=== PATIENT | male | born 1960 | race Caucasian/White ===

== ENCOUNTER 2017-01-17 09:28 | Observation (INO) | payer MEDICARE, OTHER ==
[2017-01-17] VITALS (9 sets, daily range): BP systolic 102–161; BP diastolic 63–90
[~2017-01-17] VITALS: Ht 193 cm; Wt 108.5 kg
[~2017-01-17 09:28] MED LIST: ACET-704 PO; DIAZEPAM10 MG PO; ENOX40DI SQ; HYDR-2666 PO; PHYT1CAP2 PO; TRIA10.8 NS; WARF10TA PO
[2017-01-17 09:58] LABS: HEMATOCRIT 45.6 % (39.0-53.0); HEMOGLOBIN 15.5 g/dL (13.0-17.5); RED BLOOD COUNT 4.95 x10^6/uL (4.30-5.70); RED CELL DISTRIBUTION WIDTH 13.5 % (11.5-14.5); WHITE BLOOD COUNT 6.3 x10^3/uL (4.0-11.0)
[2017-01-17 10:09] LABS: INR 2.2 (0.8-1.1); PROTHROMBIN TIME PATIENT 23.2 SEC (11.7-14.0)
[2017-01-17] MEDS ORDERED: OMEG1CAP6 PO (10:10)
[2017-01-17] MEDS ORDERED: CETI10TA16 PO (10:10)
[2017-01-17] MEDS ORDERED: POLY10DR3 EACHEYE (10:10)
[2017-01-17] MEDS ORDERED: DULO20CA PO (10:10)
[2017-01-17] MEDS ORDERED: CARB15DR3 OP (10:10)
[2017-01-17] MEDS ORDERED: ERYT1OIN6 EACHEYE (10:10)
[2017-01-17 10:18] LABS: CALCIUM 8.7 mg/dL (8.5-10.1); GFR 77.3; POTASSIUM 4.2 mmol/L (3.5-5.1)
[2017-01-17] MEDS ORDERED: LIDOCAINE 2% 20 ML VIAL. ONE (11:29)
[2017-01-17] MEDS ORDERED: IOHEXOL 300 MG/ML 100ML VIAL. ONE (11:29)
[2017-01-17] MEDS ORDERED: VERAPAMIL 5 MG/2 ML VIAL. ONE (11:54)
[2017-01-17] MEDS ORDERED: NITROGLYCERIN 200 MCG/2 ML SYRINGE FOR CATH/VASC LAB. ONE ×2 (11:54→12:28)
[2017-01-17] MEDS ORDERED: MIDAZOLAM HCL/PF 5 MG/5 ML VIAL. ONE (11:55)
[2017-01-17] MEDS ORDERED: FENTANYL PF 250 MCG/5 ML VIAL. ONE (11:55)
[2017-01-17] MEDS ORDERED: HEPARIN for IV BOLUS 10,000 UNIT/10 ML VIAL. ONE (11:55)
[2017-01-17] MEDS ORDERED: BIVALIRUDIN 250 MG VIAL. IV ONE ×2 (12:14→12:30)
[2017-01-17] MEDS ORDERED: CONTRAST GIVEN MC PRN (12:15)
[2017-01-17] MEDS ORDERED: VERAPAMIL 5 MG/2 ML VIAL. IART ONE (12:15)
[2017-01-17] MEDS ORDERED: FENTANYL PF 250 MCG/5 ML VIAL. IV ONE (12:15)
[2017-01-17] MEDS ORDERED: HEPARIN for IV BOLUS 10,000 UNIT/10 ML VIAL. IART ONE (12:15)
[2017-01-17] MEDS ORDERED: LIDOCAINE 2% 20 ML VIAL. IJ ONE (12:15)
[2017-01-17] MEDS ORDERED: NITROGLYCERIN 200 MCG/2 ML SYRINGE FOR CATH/VASC LAB. IART ONE (12:15)
[2017-01-17] MEDS ORDERED: IOHEXOL 300 MG/ML 100ML VIAL. IART ONE (12:15)
[2017-01-17] MEDS ORDERED: MIDAZOLAM HCL/PF 5 MG/5 ML VIAL. IV ONE (12:15)
[2017-01-17] MEDS: IV 1/2 NORMAL SALINE 1,000 ML IV SCH ×2 (12:53→22:53)
[2017-01-17] MEDS ORDERED: ASPIRIN 325 MG TABLET ONE (12:54)
[2017-01-17] MEDS ORDERED: CLOPIDOGREL BISULFATE 75 MG TABLET ONE (12:55)
[2017-01-17] MEDS ORDERED: ACETAMINOPHEN 325 MG TABLET. PO PRN (13:00)
[2017-01-17] MEDS ORDERED: CLOPIDOGREL BISULFATE 75 MG TABLET PO ONE (13:00)
[2017-01-17] MEDS ORDERED: NITROGLYCERIN SUBLINGUAL 0.4 MG BOTTLE OF 25. SL PRN (13:00)
[2017-01-17] MEDS ORDERED: ASPIRIN 325 MG TABLET PO ONE (13:00)
--- NOTE | 2017-01-17 13:02 | PDOC ---
MODERATE SEDATION ASSESSMENT RISKS/ALTERNATIVES Risks/Alternatives Risks and alternatives of this type of sedation and procedure discussed with: RISK/ALTERNATIVES: Patient H & P ON CHART H & P H & P on chart and reviewed for co-morbid conditions and appropriate labs. H&P ON CHART: Yes STATUS PREG STATUS ASSESSED: N/A MEDS/ALLERGIES REVIEWED Meds/Allergies Reviewed Medications and Allergies including time and route of recently administered narcotics and sedatives. MEDS/ALLERGIES REVIEWED: Yes ASA RATING ASA RATING: II AIRWAY ASSESSMENT Airway Assessment Airway patency, oral function limitations, presence of caps, crowns, dentures, partials, and ability to extend neck assessed. AIRWAY ASSESSMENT: Yes MALLAMPATI SCORE MALLAMPATI SCORE: II PRE-SEDATION ASSESSMENT PRE-SEDATION ASSESSMENT: Yes ANAMARIA TREVIÑO MD Jan 17, 2017 13:02
--- NOTE | 2017-01-17 13:23 | CARD ---
APPROVED REPORT Procedure(s) performed: 1. Left heart catheterization, selective coronary angiography and left ventr iculography via right transradial approach 2. Successful PCI/drug eluting stent placement to the left anterior descending artery INDICATION The indication(s) include : unstable angina . PROCEDURE NARRATIVE After explaining the risks, benefits and alternative options, informed consent was obtained from saray ent. 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 Arterial access was obtained in the [facility] t radial artery and a 6 [place] sheath was inserted. 6 [place] Daniel catheter was used to perform keith ective angiography of the left and right coronary arteries. 6 [place] pigtail catheter was used to pe rform left ventriculography. The following findings were noted. FINDINGS 1. Hemodynamics: Left ventricular end-diastolic pressure of 18 mmHg. No pullback gradient across th e aortic valve. 2. Left ventriculography: Normal left ventricle systolic function with ejection fraction estimated at 55%. No significant mitral regurgitation seen. 3. Coronary angiography: a. The left main coronary artery arose from the left sinus of Valsalva, gave rise to the left anteri or descending and left circumflex arteries and did not show any significant stenosis. b. The left anterior descending artery showed 90% stenosis involving the proximal to midsegment. c. The left circumflex artery did not show any significant stenosis. d. The right coronary artery was a large and dominant vessel arising from the right sinus of Valsalv a that did not show any significant stenosis. INTERVENTION The left main coronary artery was engaged with a 6 [place] XB 3.5 guide catheter and the stenosis in t he proximal to midsegment was crossed with a 0.014 inch Encision guidewire. This was predilat ed with a 3.0 x 12 mm trek balloon, treated successfully with a 3.5 x 15 mm Xience Alpine drug-elutin g stent that was postdilated with a 4.0 x 8 mm NC Trek noncompliant balloon. Follow-up angiography sh owed resolution of the stenosis to 0% with GEORGE-3 distal flow. There was a very small diagonal branch that appeared to be jailed by the stent but since patient did not have any EKG changes we decided to manage this medically. Patient tolerated the procedure well. Hemostasis was achieved using TR band. There were no immediate complications. Conclusion 1. Severe single-vessel coronary artery disease 2. Successful PCI/drug eluting stent placement to the left anterior descending artery 3. Normal left ventricle systolic function with ejection fraction estimated at 55% Recommendations 1. Aspirin 325 mg daily 2. Plavix 75 mg daily for preferably one year 3. Cardiovascular risk factor modification
[2017-01-17] MEDS ORDERED: NITROGLYCERIN OINT 1 GM PACKET. TP PRN (20:15)
[2017-01-17] MEDS ORDERED: MORPHINE SULFATE 2 MG/ML DISP.SYRIN. IV PRN ×2 (20:15)
[2017-01-17] MEDS ORDERED: DULOXETINE HCL 30 MG CAPSULE.DR. PO SCH (21:00)
[2017-01-17] MEDS ORDERED: CETIRIZINE HCL 10 MG TABLET. PO PRN (21:45)
[2017-01-17] MEDS ORDERED: DULOXETINE HCL 20 MG PO SCH (23:00)
[2017-01-18 03:25] VITALS: BP 102/59
[2017-01-18 07:00] VITALS: BP 108/55
[2017-01-18] MEDS ORDERED: CLOPIDOGREL BISULFATE 75 MG TABLET PO SCH (08:00)
[2017-01-18] MEDS ORDERED: ASPIRIN ENTERIC COATED 325 MG TABLET.DR. PO SCH (08:00)
[2017-01-18] MEDS ORDERED: DULOXETINE HCL 20 MG PO SCH ×2 (09:00→21:00)
[2017-01-18] MEDS ORDERED: CLOP75TA PO (10:59)
[2017-01-18] MEDS ORDERED: ASPI81TA9 PO (10:59)
[2017-01-18] MEDS ORDERED: METO25TA9 PO (10:59)
[2017-01-18] MEDS ORDERED: LISI2.5T PO (10:59)
[2017-01-18 11:00] VITALS: BP 104/64
[2017-01-18] MEDS ORDERED: METOPROLOL SUCC 24HR ER 25 MG TAB.ER.24H. PO SCH (11:30)
[2017-01-18] MEDS ORDERED: LISINOPRIL 2.5 MG TABLET PO SCH (11:30)
--- NOTE | 2017-01-18 14:27 | PDOC3 ---
KATYJean CarlosDEEPIKA DEPUTY MANAGER 01/18/17 1427: Discharge Summary Visit Information Date of Admission: Jan 17, 2017 Date of Discharge: Jan 18, 2017 Admitting Diagnosis: Recurrent Angina Final Diagnosis Problems Medical Problems: (1) Unstable angina pectoris Status: Acute Surgical Problems: (1) S/P cardiac cath Status: Acute CAD with PCI/ELDON to LAD Brief Hospital Course Allergies Allergies Coded Allergies Type Severity Reaction Last Updated Verified citalopram Allergy Intermediate 01/17/17 Yes simvastatin Allergy Intermediate 01/17/17 Yes Vital Signs Vital Signs Date Time Temp Pulse Resp B/P Pulse Ox O2 Delivery O2 Flow Rate FiO2 01/18/17 11:00 97.4 66 18 104/64 95 Room Air 97.4 Lab Results Laboratory Tests Test 01/17/17 09:50 White Blood Count 6.3x10^3/uL (4.0-11.0) Red Blood Count 4.95x10^6/uL (4.30-5.70) Hemoglobin 15.5g/dL (13.0-17.5) Hematocrit 45.6% (39.0-53.0) Mean Corpuscular Volume 92fL (79-100) Mean Corpuscular Hemoglobin 31pg (25-35) Mean Corpuscular Hemoglobin Concent 34g/dL (31-37) Red Cell Distribution Width 13.5% (11.5-14.5) Platelet Count 242x10^3/uL (140-400) Prothrombin Time 23.2SEC (11.7-14.0) Prothromb Time International Ratio 2.2 (0.8-1.1) Sodium Level 139mmol/L (136-145) Potassium Level 4.2mmol/L (3.5-5.1) Chloride Level 104mmol/L (98-107) Carbon Dioxide Level 26mmol/L (21-32) Anion Gap 9 (6-14) Blood Urea Nitrogen 10mg/dL (8-26) Creatinine 1.0mg/dL (0.7-1.3) Estimated GFR (Cockcroft-Gault) 77.3 Glucose Level 105mg/dL (70-99) Calcium Level 8.7mg/dL (8.5-10.1) Brief Hospital Course Mr. Zurita is a pleasant 56 yo male admitted for planned C due to recurrent chest pain with notable noninvasive ischemic evaluation in the past which have been negative. With the recurrent chest pain LHC have been decided and he was found with 90% stenosis of his proximal to mid LAD. PCI/ELDON performed via right transradial approach which he tolerated. Right wrist arteriotomy site intact without swelling or erythema and adequate hemostasis achieved. Overnight he did well with no complications. Ambulatory without difficulty. No CP, SOA. His vital signs have been stable BP well controlled but he has been displaying asymptomatic sinus bradycardia in the 40s-50s. He was previously noted with PSVT in which toprol was recommended but he has not started this. With this I was unable to place him on BB. He has not had any significant rhythm ectopies otherwise. Lisinopril low dose have been started. He is also allergic to zocor and currently on fish oil. He is also on chronic OAC with coumadin with last INR of 2.2 due to significant RLE OA with surgeries in the past with notable hx of DVT and PE. This is being managed by his PCP. He has been instructed to start ECASA 81 mg with addition of plavix 75 mg in addition to his coumadin. Cardiac rehab have been recommended but due to his RLE limitation he is hesitant about pursuing this but is considering [facility]. Additional medications have been reviewed with him with instructions not to start on toprol until further evaluation on his next visit. He has been instructed for self daily BP/HR monitoring and to notify our office outside the parameters given. Post cath instructions also have been reviewed. Discharge Information Condition at Discharge: Stable Follow Up: Weeks (4) Disposition/Orders: D/C to Home Scheduled Aspirin (Aspirin Ec) 1 TAB PO DAILY Carboxymethylcellulos/Glycerin (Refresh Optive Eye Drops) 1 DROP OP QID ( Reported) Clopidogrel Bisulfate (Clopidogrel) 1 TAB PO DAILY Erythromycin Base (Erythromycin) 1 MARTI EACHEYE QHS (Reported) Lisinopril (Lisinopril) 1 TAB PO DAILY [place]-3 Fatty Acids/Fish Oil (Fish Oil 1,000 Mg Capsule) 1 EACH PO DAILY ( Reported) Phytosterol/Vit D3/ Fish Oil (Cholesterol Relief Softgel) 1 EACH PO DAILY ( Reported) Polymyxin B Sulf/Trimethoprim (Polymyxin B-Tmp Eye Drops) 1 DROP EACHEYE BID ( Reported) Triamcinolone Acetonide (Nasacort) 2 SPRAY NS DAILY (Reported) Warfarin Sodium (Coumadin) 1 TAB PO DAILY (Reported) Scheduled PRN Acetaminophen With Codeine (Tylenol With Codeine #3 Tablet) 1 TAB PO PRN PRN PRN PAIN (Reported) Cetirizine Hcl (Cetirizine Hcl) 10 MG PO DAILY PRN PRN ALLERGIES (Reported) Diazepam (Diazepam) 1 TAB PO PRN PRN PRN ANXIETY / AGITATION (Reported) Patient Instructions Patient Instructions GENERAL INSTRUCTIONS: 1. Your dressing should be removed prior to leaving the hospital. 2. It is OK to shower the day after your procedure. 3. If you received stents, be sure to carry your stent information card with you in your wallet/purse at all times. 4. Call the office immediately at [phone] if you notice any fever or if there is redness, worsening tenderness/pain, increased bruising, or drainage from the puncture site. 5. Should you have bleeding from the site, lie down immediately & put pressure on the site. The pressure should be hard enough to stop the bleeding. Have the nearest person call 911. DO NOT try to drive to the ER with active bleeding. 6. If you notice a change in color, coolness to touch, or loss of feeling in the affected extremity, come to the emergency room. Please have someone drive you or call 911 if no one is available. DO NOT drive yourself. 7. If you normally take glucophage (metformin), please do not take this medicine for 48 hours following your procedure. 8. DO NOT STOP TAKING YOUR PLAVIX OR ASPIRIN UNLESS IT IS CLEARED BY A SOUND EDITOR OF YOUR DIRECTOR MEDICARE SALES AT OUR OFFICE. 9. QUIT SMOKING: the [place] [employer], [place] [employer], & [place] [employer] have cessation resources available on their websites 10. Please have someone available to drive you home from the hospital as you may be limited by sedation medications given during the procedure. Radial Artery (Wrist) access: 1. No pushing, pulling, lifting, typing, or anything that requires repetitive use/movement of the affected wrist for 3 days following your procedure. 2. OK to drive the day following your procedure. (This is because of effects of sedating medications.) Call the office at [phone] for any questions or concerns. ANAMARIA TREVIÑO MD 01/19/17 0852: Discharge Summary Brief Hospital Course Brief Hospital Course Patient seen and examined 01/18/17. 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 s/p PCI/stent to LAD, stable and chest pain-free. Cannot initiate beta primitivo secondary to bradycardia. We will address this as an outpatient. Continue dual antiplatelet therapy. Follow-up in 1 month. Discharge Information Scheduled Aspirin (Aspirin Ec) 1 TAB PO DAILY Carboxymethylcellulos/Glycerin (Refresh Optive Eye Drops) 1 DROP OP QID ( Reported) Clopidogrel Bisulfate (Clopidogrel) 1 TAB PO DAILY Erythromycin Base (Erythromycin) 1 MARTI EACHEYE QHS (Reported) Lisinopril (Lisinopril) 1 TAB PO DAILY [place]-3 Fatty Acids/Fish Oil (Fish Oil 1,000 Mg Capsule) 1 EACH PO DAILY ( Reported) Phytosterol/Vit D3/ Fish Oil (Cholesterol Relief Softgel) 1 EACH PO DAILY ( Reported) Polymyxin B Sulf/Trimethoprim (Polymyxin B-Tmp Eye Drops) 1 DROP EACHEYE BID ( Reported) Triamcinolone Acetonide (Nasacort) 2 SPRAY NS DAILY (Reported) Warfarin Sodium (Coumadin) 1 TAB PO DAILY (Reported) Scheduled PRN Acetaminophen With Codeine (Tylenol With Codeine #3 Tablet) 1 TAB PO PRN PRN PRN PAIN (Reported) Cetirizine Hcl (Cetirizine Hcl) 10 MG PO DAILY PRN PRN ALLERGIES (Reported) Diazepam (Diazepam) 1 TAB PO PRN PRN PRN ANXIETY / AGITATION (Reported) DEEPIKA JONES APRN Jan 18, 2017 14:27 ANAMARIA TREVIÑO MD Jan 19, 2017 08:52
[2017-01-19] MEDS ORDERED: ASPIRIN ENTERIC COATED 81 MG TABLET.DR. PO SCH (08:00)
[2017-01-19] MEDS ORDERED: DULO20CA PO ×2 (21:07→21:30)
== END 2017-01-18 13:35 | disposition home or self-care (01) ==
LOC: CCL 09:28 → 2 NORTH 12:23 → INTOOBSV 12:23 → 2 NORTH 13:57
PROVIDERS: ADMIT Internal Medicine Cardiovascular Disease; ATTEND Internal Medicine Cardiovascular Disease
DX: I25.110 Atherosclerotic heart disease of native coronary artery with unstable angina pectoris (principal)
CPT/HCPCS: 36415; 80048; 85027; 85610; 93458; 96374; 96375; C1725; C1769; C1874; C1887; C1892; C9600; G0378; G0379; J0583; J2250; J3010; J3490; Q9967; 92928

== ENCOUNTER 2017-01-19 17:52 | Inpatient (IN) | payer MEDICARE, OTHER ==
[~2017-01-19] VITALS: Ht 193 cm; Wt 111.1 kg
[~2017-01-19 17:52] MED LIST changes: +ASPI81TA9 PO; +CARB15DR3 OP; +CETI10TA16 PO; +CLOP75TA PO; +DULO20CA PO; +ERYT1OIN6 EACHEYE; +LISI2.5T PO; +METO25TA9 PO; +OMEG1CAP6 PO; +POLY10DR3 EACHEYE
[2017-01-19 19:00] VITALS: BP 125/82
[2017-01-19] MEDS ORDERED: ACETAMINOPHEN 325 MG TABLET. PO PRN (20:15)
[2017-01-19] MEDS ORDERED: DIAZEPAM 5 MG TABLET PO PRN (20:30)
[2017-01-19] MEDS ORDERED: CETIRIZINE HCL 10 MG TABLET. PO PRN (20:30)
[2017-01-19] MEDS: NITROGLYCERIN SUBLINGUAL 0.4 MG BOTTLE OF 25. SL PRN (20:46)
[2017-01-19] MEDS: MORPHINE SULFATE 4 MG/ML DISP.SYRIN. IV PRN (20:46)
[2017-01-19] MEDS: POLYVINYL ALCOHOL 1.4% OPHTH SOLUTION 15ML BOTTLE. OU SCH (20:51)
[2017-01-19] MEDS: POLYMYXIN/TRIMETHOPRIM OPHTH SOLUTION 10ML BOTTLE. OU SCH (20:51)
[2017-01-19] MEDS ORDERED: ERYTHROMYCIN 0.5% OPHTH OINTMENT 1GM TUBE. OU SCH (21:00)
[2017-01-19] MEDS ORDERED: WARFARIN 10 MG TABLET. PO SCH (21:00)
[2017-01-19] MEDS ORDERED: DULO20CA PO ×2 (21:07→21:30)
[2017-01-19] MEDS ORDERED: DULOXETINE HCL 20 MG PO SCH (21:30)
[2017-01-19 23:12] VITALS: BP 100/62
[2017-01-20 03:03] VITALS: BP 107/70
[2017-01-20] MEDS: MORPHINE SULFATE 4 MG/ML DISP.SYRIN. IV PRN (03:21)
[2017-01-20] MEDS: NITROGLYCERIN SUBLINGUAL 0.4 MG BOTTLE OF 25. SL PRN (03:21)
[2017-01-20 04:00] LABS: BASO % 1 % (0-3); EOS % 2 % (0-3); HEMATOCRIT 42.8 % (39.0-53.0); HEMOGLOBIN 14.4 g/dL (13.0-17.5); LYMPH # 2.3 x10^3/uL (1.0-4.8); LYMPH % 45 % (24-48); MEAN CORPUSCULAR HEMOGLOBIN 32 pg (25-35); MEAN CORPUSCULAR HGB CONC 34 g/dL (31-37); MEAN CORPUSCULAR VOLUME 94 fL (79-100); MONO % 9 % (0-9); NEUT % 44 % (31-73); PLATELET COUNT 228 x10^3/uL (140-400); RED BLOOD COUNT 4.54 x10^6/uL (4.30-5.70); RED CELL DISTRIBUTION WIDTH 13.2 % (11.5-14.5); WHITE BLOOD COUNT 5.1 x10^3/uL (4.0-11.0)
[2017-01-20] MEDS: ONDANSETRON PF 4 MG/2 ML VIAL. IV PRN ×2 (04:13→09:11)
[2017-01-20 04:16] LABS: CALCIUM 8.6 mg/dL (8.5-10.1); GFR 77.3; POTASSIUM 4.3 mmol/L (3.5-5.1)
[2017-01-20 07:00] VITALS: BP 113/65
[2017-01-20] MEDS: POLYVINYL ALCOHOL 1.4% OPHTH SOLUTION 15ML BOTTLE. OU SCH ×2 (07:51→12:19)
[2017-01-20] MEDS: POLYMYXIN/TRIMETHOPRIM OPHTH SOLUTION 10ML BOTTLE. OU SCH (08:08)
[2017-01-20] MEDS ORDERED: FISH OIL PO SCH (09:00)
[2017-01-20] MEDS ORDERED: PHYTOSTEROL PO SCH (09:00)
[2017-01-20] MEDS ORDERED: LISINOPRIL 2.5 MG TABLET PO SCH (09:00)
[2017-01-20] MEDS ORDERED: OMEGA-3 FATTY ACIDS/FISH OIL 1,000 MG CAPSULE. PO SCH (09:00)
[2017-01-20] MEDS ORDERED: VIT D3 PO SCH (09:00)
[2017-01-20] MEDS ORDERED: CLOPIDOGREL BISULFATE 75 MG TABLET PO SCH (09:00)
[2017-01-20] MEDS ORDERED: FLUTICASONE 50MCG/NASAL SPRAY 16GM BOTTLE. NS SCH (09:00)
[2017-01-20] MEDS ORDERED: ASPIRIN ENTERIC COATED 81 MG TABLET.DR. PO SCH (09:00)
--- NOTE | 2017-01-20 09:22 | EKG ---
[facility] [address] [place] [address] Test Date: 2017-01-20 Test Time: 09:20:03 Pat Name: RENEE CARBONE Department: Room: 205 1 Gender: M Compliance Auditor: LU : [id number] Requested By: JESSICA MAURICE Order Number: [id number] Reading MD: Aline Seymour Measurements Intervals [place] Rate: 49 P: 49 PA: 148 QRS: 15 QRSD: 90 T: 19 QT: 410 QTc: 369 Interpretive Statements SINUS BRADYCARDIA OTHERWISE NORMAL ECG Electronically Signed On 01-23-2017 15:50:16 CDT by Aline Seymour
--- NOTE | 2017-01-20 09:28 | PDOC ---
CARDIO Progress Notes Date and Time Date of Service 01/20/17 Time of Evaluation 0918 Subjective Subjective: No shortness of breath, No Palpitations, No Dizziness, Other Vitals Vitals Vital Signs Date Time Temp Pulse Resp B/P Pulse Ox O2 Delivery O2 Flow Rate FiO2 01/20/17 08:07 55 113/65 01/20/17 07:00 97.7 20 93 Room Air 97.7 Weight Weight [ ] Input and Output Intake and Output Intake and Output 01/20/17 07:00 Intake Total 700 ml Balance 700 ml Intake Oral 700 ml # Voids 3 Laboratory Labs Laboratory Tests Test 01/19/17 20:50 01/20/17 02:55 Troponin I Quantitative 0.290ng/mL (0.000-0.055) 0.303ng/mL (0.000-0.055) White Blood Count 5.1x10^3/uL (4.0-11.0) Red Blood Count 4.54x10^6/uL (4.30-5.70) Hemoglobin 14.4g/dL (13.0-17.5) Hematocrit 42.8% (39.0-53.0) Mean Corpuscular Volume 94fL (79-100) Mean Corpuscular Hemoglobin 32pg (25-35) Mean Corpuscular Hemoglobin Concent 34g/dL (31-37) Red Cell Distribution Width 13.2% (11.5-14.5) Platelet Count 228x10^3/uL (140-400) Neutrophils (%) (Auto) 44% (31-73) Lymphocytes (%) (Auto) 45% (24-48) Monocytes (%) (Auto) 9% (0-9) Eosinophils (%) (Auto) 2% (0-3) Basophils (%) (Auto) 1% (0-3) Neutrophils # (Auto) 2.2x10^3uL (1.8-7.7) Lymphocytes # (Auto) 2.3x10^3/uL (1.0-4.8) Monocytes # (Auto) 0.5x10^3/uL (0.0-1.1) Eosinophils # (Auto) 0.1x10^3/uL (0.0-0.7) Basophils # (Auto) 0.0x10^3/uL (0.0-0.2) Sodium Level 139mmol/L (136-145) Potassium Level 4.3mmol/L (3.5-5.1) Chloride Level 102mmol/L (98-107) Carbon Dioxide Level 29mmol/L (21-32) Anion Gap 8 (6-14) Blood Urea Nitrogen 16mg/dL (8-26) Creatinine 1.0mg/dL (0.7-1.3) Estimated GFR (Cockcroft-Gault) 77.3 Glucose Level 102mg/dL (70-99) Calcium Level 8.6mg/dL (8.5-10.1) Physical Exam HEENT: Neck Supple W Full Motion Chest: Symmetric LUNGS: Clear to Auscultation Heart: S1S2, RRR, no murmurs, other (HR 48-50) Abdomen: Soft N/T Extremities: 2+ Dorsalis Pedis, No Edema Neurology: alert, oriented, follow commands Assessment Assessment This is a 56 yo male, with a history of hypertension, hyperlipidemia, PE/DVT on OAC, PSVT, and CAD s/p PCI/ ELDON to the LAD this past Tuesday, who presented with complaints of ongoing chest pain. Patient reports he has been this pressure intermittently over the last couple of years. Located in his left chest and radiates to his left shoulder. No precipitating factors. Episodes last approximately 2-3 mins in duration. Relieves without intervention. Reports having nausea and not feeling well overall for a great portion of the days yesterday. Concerned that pain persists post PCI. Reports compliance with antiplatelet therapy. Assessment/ Plan 1. Chest pain s/p PCI/ELDON to LAD 01/17/17 trop mildly elevated but likely trending down from recent PCI Will check CK. Do not suspect in-stent thrombosis ? vasospasms- will consider for addition of Imdur Continue medical management/ secondary prevention 2. Hypertension Controlled with meds 3. Bradycardia, sinus asymptomatic no significant pauses noted on telemetry. avoid AV don blocking agents 4. PSVT recent event monitor with few episodes of atrial tachycardia Toprol recommended for suppression but unable to tolerate due to bradycardia. 5. Hyperlipidemia intolerance to statins check lipids 6. GERD taking Rolaids daily add PPI 7. H/o PE/DVT on Warfarin. INR 2.2 01/17/17 8. Anxiety management per PCP FABIO KATE APRN Jan 20, 2017 09:28
[2017-01-20 09:47] LABS: INR 1.9 (0.8-1.1); PROTHROMBIN TIME PATIENT 20.3 SEC (11.7-14.0)
--- NOTE | 2017-01-20 09:52 | ACF ---
Admit Criteria Forms Admit Criteria Forms Admit Criteria Forms CARDIOLOGY GRG Clinical Indications for Admission to Inpatient Care ( Place 'X' for any and all applicable criteria): Hospital admission is needed for appropriate care of the patient because of ANY ONE of the following (1): [ ] I. Hemodynamic instability as indicated by ALL of the following (1)(2)(3) (4)(5) [ ]a) Vital signs or other findings not as expected for chronic patient condition or baseline [ ]b) Instability indicated by ANY ONE of the following: [ ]i) Hypotension [ ]ii) Symptomatic Tachycardia unresponsive to treatment ( e.g., analgesia, fluids, sedation as indicated) [ ]iii) Inadequate perfusion indicated by ANY ONE of the following: [ ] 1) Lactic acidosis (> 2 mmol/L) [ ] 2) New abnormal capillary refill (> 3 seconds) [ ] 3) Reduced urine output [ ] 4) New altered mental status [ ]iv) Orthostatic vital sign changes unresponsive to treatment (e.g., fluids) [ ]v) IV inotropic or vasopressor medication required to maintain adequate blood pressure or perfusion [ ] II. Severe heart failure as indicated by ANY ONE of the following(17)(18) [ ]a) Respiratory distress [ ]b) Hypotension [ ]c) Anasarca (refractory to outpatient therapy) [ ]d) Cardiac arrhythmias of immediate concern [ ]e) Myocardial ischemia [ ] III. Cardiac arrhythmias or findings of immediate concern indicated by ANY ONE of the following (19)(20): [ ] a) Heart rhythms that are inherently dangerous or unstable indicated by ANY ONE of the following (21)(22)(23): [ ] i) Resuscitated ventricular fibrillation or cardiac arrest [ ] ii) Ventricular escape rhythm [ ] iii) Sustained ventricular tachycardia (30 seconds or more of ventricular rhythm at greater than 100 beats per minute) [ ] iv) Nonsustained ventricular tachycardia and ANY ONE of the following: [ ] 1) Suspected cardiac ischemia as cause or consequence of ventricular tachycardia [ ] 2) In setting of acute myocarditis [ ] b) Unstable cardiac conduction defects indicated by ANY ONE of the following(23)(24)(25) [ ] i) Type II second-degree atrioventricular block [ ]ii) Third-degree atrioventricular block [ ]iii) New-onset left bundle branch block with suspected myocardial ischemia [ ]c) Any heart rhythm and ANY ONE of the following (21)(22)(26)(27) (28) [ ] i) Continuous long-term ECG monitoring needed (e.g., initiation of drug requiring monitoring for more than 24 hours) [ ] ii) Patient has automatic implanted cardioverter defibrillator that is repeatedly firing, malfunctioning, or in need of immediate adjustment of settings beyond the scope of ambulatory or observation care [ ]d) Heart rhythms of concern due to ANY ONE of the following: [ ] i) Hypotension [ ] ii) Respiratory distress [ ] iii) Association with other significant symptoms (e.g., bradycardia with syncope or ongoing dizziness, supraventricular tachycardia with chest pain (14)(15)(17) [ ] IV. Monitoring for cardiac contusion beyond the scope of observation care needed [A](30)(31)(32) [ ] V. Surgical or device complication (e.g., valve replacement complication , pacemaker dysfunction) (35)(41)(44)(45)(46) [ ] . Inpatient palliative care needed. [B](49) Also use Inpatient Palliative Care Criteria [ ] VII. Nonbacterial thrombotic (marantic) endocarditis (36)(43)(47)(48) [X] VIII. Cardiology condition, symptom, or finding for which emergency and observation care has failed or are not considered appropriate. [ ] IX. Acute valvular disease requiring inpatient as indicated by ANY ONE of the following (41) [ ]a) Acute valvular regurgitation (42) [ ]b) Noninfectious valvulitis (43) [ ]c) Obstructive valve thrombosis [ ]d) Paravalvular leak [ ]e) Other significant valvular disorder remaining after emergency or observation level of care (as appropriate) [ ]X. Pericardial disease requiring inpatient treatment as indicated by ANY ONE of the following (33)(34)(35)(36)(37) [ ]a) Suspected tamponade (38)(39)(40) [ ]b) Hemopericardium [ ]c) Other significant pericardial disorder remaining after emergency or observation level of care (as appropriate) [ ] XI. Cardiac ischemia beyond scope of emergency and observation care. [ ] XII. Hypertension requiring inpatient treatment as indicated by ANY ONE of the following (6)(7)(8) [ ]a) SBP greater than 220 mm Hg or DBP greater than 120 mmHg despite treatment [ ]b) SBP greater than 140 mm Hg or DBP greater than 100 mm Hg with evidence of acute end organ damage as indicated by ANY ONE of the following [ ] i) Encephalopathy [ ] ii) Acute renal failure as indicated by new onset of ANY ONE of the following (9)(10)(11)(12)(13) [ ]1) 3-fold rise in serum creatinine from baseline [ ]2) Serum creatinine greater than 4 mg/dL ( 354 micromoles/L) with acute rise greater than 0.5 mg/dL (44.2 micromoles/L) [ ]3) Reduction of more than 75% in estimated glomerular filtration rate from baseline [ ]4) Estimated glomerular filtration rate less than 35 mL/min/1.73m2 (0.59 mL/sec/1.73m2) in child up to 18 years of age [ ]5) Cessation of urine output indicated by ALL of the following [ ]A. Adequate volume status [ ]B. Inadequate urine output as indicated by ANY ONE of the following [ ]a. Urine output less than 0.3 mL/kg/hr for 24 hours [ ]b. Anuria (urine output less than 0.1 mL/kg/hr) for 12 hours [ ] iii) Aortic dissection [ ] iv) Myocardial Ischemia [ ] v) Left ventricular heart failure [ ]vi) Retinal Hemorrhage [ ]vii) Other significant finding [ ]c) Hypertension in child requiring inpatient treatment as indicated by ALL of the following(14)(15)(16) [ ] i) Outpatient treatment not effective, not available, or not appropriate [ ]ii) SBP or DBP greater than 95th percentile for age [ ]iii) Evidence of acute end organ damage as indicated by ANY ONE of the following [ ]1) Altered mental status [ ]2) Acute renal failure as indicated by new onset of ANY ONE of the following(9)(10)(11)(12)(13) [ ]A. 3-fold rise in serum creatinine from baseline [ ]B. Serum creatinine greater than 4 mg/dL (354 micromoles/L) with acute rise greater than 0.5 mg/dL (44.2 micromoles/L) [ ]C. Reduction of more than 75% in estimated glomerular filtration rate from baseline [ ]D. Estimated glomerular filtration rate less than 35 mL/min/1.73m2 (0.59 mL/sec/1.73m2) in child up to 18 years of age [ ]E. Cessation of urine output indicated by ALL of the following [ ]a. Adequate volume status [ ]b. Inadequate urine output as indicated by ANY ONE of the following [ ]i) Urine output less than 0.3 mL/kg/hr for 24 hours [ ]ii) Anuria ( urine output less than 0.1 mL/kg/hr) for 12 hours [ ]3) Severe headache [ ]4) Visual disturbance [ ]5) Retinal hemorrhage [ ]6) Other significant finding [ ]XIII. Complications of transplanted heart indicated by ANY ONE of the following(61): [ ]a) Acute graft rejection requiring inpatient management (eg, intravenous immunosuppression)(62)(63) [ ]b) Acute graft heart failure indicated by ANY ONE of the following(64): [ ]i) Hemodynamic instability [ ]ii) Cardiac arrhythmias of immediate concern [ ]iii) Pulmonary edema that is very severe (eg, mechanical ventilation needed, imminent or likely, need for 100% oxygen to keep oxygen saturation above 90%) [ ]iv) Pulmonary edema that is persistent as indicated by ALL of the following: [ ]1) New need for oxygen therapy to keep oxygen saturation above 90% (or increased FiO2 need from baseline) [ ]2) Has not improved sufficiently with emergency department or observation care IV diuretics or other heart failure treatments[E] [ ]v) Altered mental status that is severe or persistent [ ]vi) Increased creatinine (new on laboratory test) with reduction of more than 50% in estimated glomerular filtration rate from baseline [ ]vii) Progressively (ongoing) rising creatinine (known from past laboratory test) with reduction of more than 25% in estimated glomerular filtration rate from baseline [ ]viii) Acute renal failure [ ]ix) Acute peripheral ischemia (eg, examination shows pulseless, cool, mottled, or cyanotic extremity) [ ]x) Pulmonary artery catheter monitoring needed [ ]xi) Other sign or symptom of heart failure requiring inpatient treatment (ie, too severe or not responsive to outpatient and observation care treatment) [ ]c) Infection requiring inpatient management (eg, Hemodynamic instability, need for intravenous antimicrobial treatment)(66)(67)(68)(69)(70) [ ]d) Cardiac allograft vasculopathy requiring inpatient management ( eg evidence of cardiac ischemia)(71) [ ]e) Other complication of transplanted heart (eg, stroke, severe pulmonary hypertension, severe valvular dysfunction) requiring inpatient management(72) The original [facility] content created by [facility] has been revised. The portions of the content which have been revised are identified through the use of italic text or in bold, and [facility] has neither reviewed nor approved the modified material. All other unmodified content is copyright [facility]. Please see references footnoted in the original [facility] edition 2016 BETHANIE CALDERA Jan 20, 2017 09:52
[2017-01-20 10:02] LABS: CKMB MASS 0.7 ng/mL (0.0-3.6); CREATINE KINASE 64 U/L (39-308)
[2017-01-20 10:25] LABS: CHOLESTEROL/HDL RATIO 8.2
[2017-01-20 10:47] VITALS: BP 102/64
[2017-01-20] MEDS ORDERED: PANTOPRAZOLE 40 MG TABLET.DR. PO SCH (11:00)
[2017-01-20] MEDS ORDERED: ENOXAPARIN 40 MG/0.4 ML SYRINGE. SQ SCH (12:15)
--- NOTE | 2017-01-20 12:16 | PDOC1 ---
History and Physical Date of Admission Date of Admission 01/19/17 Identification/Chief Complaint Chief Complaint chest pain Problems: Source Source: Chart review, Patient History of Present Illness History of Present Illness 56yo M, was just dced on Tuesday with PCI, 1 ELDON IN LAD, was sent from [facility] for chest pain. Pt said post pci, he cont having chest pain, worse yesterday and went to ER. The chest tuttle is left side, with nausea, sob, radiating to left shoulder. he takes his meds. Past Medical History Cardiovascular: HTN, [place] Past Surgical History Past Surgical History: No pertinent history Family History Family History: No Significant Social History Smoke: <1 pack per day ALCOHOL: occassional Drugs: None Current Medications Current Medications Current Medications Medications (Trade) Dose Ordered Sig/Mary Start Time Stop Time Status Last Admin Dose Admin Acetaminophen (Tylenol) 650 mg PRN Q6HRS PRN 01/19/17 20:15 Artificial Tears (Artificial Tears) 1 drop QID 01/19/17 21:00 01/20/17 07:51 1 DROP Aspirin (Ecotrin) 81 mg DAILY 01/20/17 09:00 01/20/17 07:51 81 MG Cetirizine HCl (Zyrtec) 10 mg PRN DAILY PRN 01/19/17 20:30 Clopidogrel Bisulfate (Plavix) 75 mg DAILY 01/20/17 09:00 01/20/17 07:51 75 MG Diazepam (Valium) 10 mg PRN DAILY PRN 01/19/17 20:30 Duloxetine HCl (Cymbalta) 20 mg HS 01/19/17 21:30 01/19/17 21:33 20 MG Erythromycin (Romycin) 0.25 inch QHS 01/19/17 21:00 01/19/17 20:52 0.25 INCH Fish Oil (Fish Oil) 1,000 mg DAILY 01/20/17 09:00 Fluticasone Propionate (Flonase) 2 spray DAILY 01/20/17 09:00 01/20/17 07:50 2 SPRAY Lisinopril (Prinivil) 2.5 mg DAILY 01/20/17 09:00 01/20/17 08:07 2.5 MG Morphine Sulfate 4 mg PRN Q4HRS PRN 01/19/17 20:15 01/20/17 03:21 4 MG Nitroglycerin (Nitrostat) 0.4 mg PRN Q5MIN PRN 01/19/17 20:15 01/20/17 03:21 0.4 MG Non-Formulary Medication 1 each DAILY 01/20/17 09:00 UNV Ondansetron HCl (Zofran) 4 mg PRN Q6HRS PRN 01/19/17 20:15 01/20/17 09:11 4 MG Pantoprazole Sodium (Protonix) 40 mg DAILYAC 01/20/17 11:00 Polymyxin/ Trimethoprim Sulfate (Polytrim) 1 drop BID 01/19/17 21:00 01/19/17 20:51 1 DROP Warfarin Sodium (Coumadin Per Physician) 1 each PRN DAILY PRN 01/19/17 20:30 Warfarin Sodium (Coumadin) 10 mg DAILY16 01/19/17 21:00 01/19/17 20:51 10 MG Allergies Allergies Allergies Coded Allergies Type Severity Reaction Last Updated Verified citalopram Allergy Intermediate 01/17/17 Yes simvastatin Allergy Intermediate 01/17/17 Yes ROS Review of System CONSTITUTIONAL: No fever or chills EYES: No recent changes SKIN: No rash or itching CARDIOVASCULAR: No chest pain, syncope, palpitations, or edema RESPIRATORY: No SOB or cough GASTROINTESTINAL: No nausea, vomiting or abdominal pain NEUROLOGICAL: No headaches or weakness ENDOCRINE: No cold or heat intolerance GENITOURINARY: No urgency or frequency of urination MUSCULOSKELETAL: No back pain or joint pain LYMPHATICS: No enlarged lymph nodes PSYCHIATRIC: No anxiety or depression Physical Exam Physical Exam GEN.: No apparent distress. Alert and oriented. HEENT: Head is normocephalic, atraumatic NECK: Supple. LUNGS: Clear to auscultation. HEART: RRR, S1, S2 present. Peripheral pulses intact ABDOMEN: Soft, nontender. Positive bowel sounds. EXTREMITIES: Without any cyanosis. NEUROLOGIC: Normal speech, normal tone PSYCHIATRIC: Normal affect, normal mood. SKIN: No ulcerations Vitals Vitals Vital Signs Date Time Temp Pulse Resp B/P Pulse Ox O2 Delivery O2 Flow Rate FiO2 01/20/17 10:47 97.8 62 18 102/64 94 Room Air 97.8 Labs Labs Laboratory Tests Test 01/19/17 20:50 01/20/17 02:55 01/20/17 09:20 Troponin I Quantitative 0.290ng/mL (0.000-0.055) 0.303ng/mL (0.000-0.055) 0.240ng/mL (0.000-0.055) White Blood Count 5.1x10^3/uL (4.0-11.0) Red Blood Count 4.54x10^6/uL (4.30-5.70) Hemoglobin 14.4g/dL (13.0-17.5) Hematocrit 42.8% (39.0-53.0) Mean Corpuscular Volume 94fL (79-100) Mean Corpuscular Hemoglobin 32pg (25-35) Mean Corpuscular Hemoglobin Concent 34g/dL (31-37) Red Cell Distribution Width 13.2% (11.5-14.5) Platelet Count 228x10^3/uL (140-400) Neutrophils (%) (Auto) 44% (31-73) Lymphocytes (%) (Auto) 45% (24-48) Monocytes (%) (Auto) 9% (0-9) Eosinophils (%) (Auto) 2% (0-3) Basophils (%) (Auto) 1% (0-3) Neutrophils # (Auto) 2.2x10^3uL (1.8-7.7) Lymphocytes # (Auto) 2.3x10^3/uL (1.0-4.8) Monocytes # (Auto) 0.5x10^3/uL (0.0-1.1) Eosinophils # (Auto) 0.1x10^3/uL (0.0-0.7) Basophils # (Auto) 0.0x10^3/uL (0.0-0.2) Sodium Level 139mmol/L (136-145) Potassium Level 4.3mmol/L (3.5-5.1) Chloride Level 102mmol/L (98-107) Carbon Dioxide Level 29mmol/L (21-32) Anion Gap 8 (6-14) Blood Urea Nitrogen 16mg/dL (8-26) Creatinine 1.0mg/dL (0.7-1.3) Estimated GFR (Cockcroft-Gault) 77.3 Glucose Level 102mg/dL (70-99) Calcium Level 8.6mg/dL (8.5-10.1) Prothrombin Time 20.3SEC (11.7-14.0) Prothromb Time International Ratio 1.9 (0.8-1.1) Creatine Kinase 64U/L (39-308) Creatine Kinase MB (Mass) 0.7ng/mL (0.0-3.6) Creatine Kinase MB Relative Index % (0-4) Triglycerides Level 161mg/dL (0-150) Cholesterol Level 222mg/dL (0-200) LDL Cholesterol, Calculated 163mg/dL (0-100) VLDL Cholesterol, Calculated 32mg/dL (0-40) HDL Cholesterol 27mg/dL (40-60) Cholesterol/HDL Ratio 8.2 Laboratory Tests Test 01/19/17 20:50 01/20/17 02:55 01/20/17 09:20 Troponin I Quantitative 0.290ng/mL (0.000-0.055) 0.303ng/mL (0.000-0.055) 0.240ng/mL (0.000-0.055) White Blood Count 5.1x10^3/uL (4.0-11.0) Red Blood Count 4.54x10^6/uL (4.30-5.70) Hemoglobin 14.4g/dL (13.0-17.5) Hematocrit 42.8% (39.0-53.0) Mean Corpuscular Volume 94fL (79-100) Mean Corpuscular Hemoglobin 32pg (25-35) Mean Corpuscular Hemoglobin Concent 34g/dL (31-37) Red Cell Distribution Width 13.2% (11.5-14.5) Platelet Count 228x10^3/uL (140-400) Neutrophils (%) (Auto) 44% (31-73) Lymphocytes (%) (Auto) 45% (24-48) Monocytes (%) (Auto) 9% (0-9) Eosinophils (%) (Auto) 2% (0-3) Basophils (%) (Auto) 1% (0-3) Neutrophils # (Auto) 2.2x10^3uL (1.8-7.7) Lymphocytes # (Auto) 2.3x10^3/uL (1.0-4.8) Monocytes # (Auto) 0.5x10^3/uL (0.0-1.1) Eosinophils # (Auto) 0.1x10^3/uL (0.0-0.7) Basophils # (Auto) 0.0x10^3/uL (0.0-0.2) Sodium Level 139mmol/L (136-145) Potassium Level 4.3mmol/L (3.5-5.1) Chloride Level 102mmol/L (98-107) Carbon Dioxide Level 29mmol/L (21-32) Anion Gap 8 (6-14) Blood Urea Nitrogen 16mg/dL (8-26) Creatinine 1.0mg/dL (0.7-1.3) Estimated GFR (Cockcroft-Gault) 77.3 Glucose Level 102mg/dL (70-99) Calcium Level 8.6mg/dL (8.5-10.1) Prothrombin Time 20.3SEC (11.7-14.0) Prothromb Time International Ratio 1.9 (0.8-1.1) Creatine Kinase 64U/L (39-308) Creatine Kinase MB (Mass) 0.7ng/mL (0.0-3.6) Creatine Kinase MB Relative Index % (0-4) Triglycerides Level 161mg/dL (0-150) Cholesterol Level 222mg/dL (0-200) LDL Cholesterol, Calculated 163mg/dL (0-100) VLDL Cholesterol, Calculated 32mg/dL (0-40) HDL Cholesterol 27mg/dL (40-60) Cholesterol/HDL Ratio 8.2 VTE Prophylaxis Ordered VTE Prophylaxis Devices: Yes VTE Pharmacological Prophylaxi: No Assessment/Plan Assessment/Plan 1. chest pain, 2/2 unstable angina likely 2. recent CAD with PCI 1 ELDON in LAD 3. HTN 4. SINUs bradycardia 5. PSVT 6.hld 7. gerd 8. h/o PE, DVT on warfarin 9. anxiety 10. tobaccoism plan: 1. fu with card, may need repeat cath 2. need meds for HLD, seems cannot tolerate statin 3. cont home meds 4. check CKMB not indicating acute CAD 5. CONT warfarin, INR daily gi ppx JESSICA MAURICE MD Jan 20, 2017 12:15
[2017-01-20] MEDS ORDERED: ISOSORBIDE MONONITRATE ER 30 MG TAB.ER.24H PO SCH (13:30)
--- NOTE | 2017-01-20 13:44 | PDOC3 ---
Discharge Summary [facility] Date of Admission: Jan 19, 2017 Discharge Date: Jan 20, 2017 Admitting Diagnosis 1. chest pain, 2/2 unstable angina vs. spasm 2. recent CAD with PCI 1 ELDON in LAD 3. HTN 4. SINUs bradycardia 5. PSVT 6.hld 7. gerd 8. h/o PE, DVT on warfarin 9. anxiety 10. tobaccoism Problems: Final Diagnosis Problems Medical Problems: (1) Unstable angina pectoris Status: Acute CONSULTS card Brief Hospital Course 56yo M, was just dced on Tuesday with PCI, 1 ELDNO IN LAD, was sent [facility] for chest pain. Pt said post pci, he cont having chest pain, worse yesterday and went to ER. The chest tuttle is left side, with nausea, sob, radiating to left shoulder. he takes his meds. CK neg. troponin high, likely trending down, although there is no previous numbers to compare. card consulted, no intervention. dc with zetia. cont home meds. dc time 35min Patient History: Cancer confirmed (situation) gpa Family history: Allergy G8 BROTHER 33 FATHER Family history: Asthma 33 FATHER Family history: Cardiomyopathy (situation) 33 FATHER Family history: Cardiovascular disease (situation) 33 FATHER Family history: Gallbladder disease (situation) 33 FATHER Family history: Gastrointestinal disease (situation) 33 FATHER Family history: Hypertension (situation) 32 MOTHER No Family History of: Family history: Alzheimer's disease (situation) Family history: Angina (situation) Family history: Autoimmune disease (situation) Family history: Blood disorder (situation) Family history: Breast disease (situation) Family history: Crohn's disease (situation) Family history: Depression (situation) Family history: Diabetes mellitus (situation) Family history: Epilepsy (situation) Family history: Hemophilia (situation) Family history: Obesity (situation) Family history: Schizophrenia (situation) Family history: Sickle cell trait (situation) Family history: Suicide (situation) Family history: neoplasm - trachea/bronchus/lung (situation) Family history: neoplasm - urinary organ (situation) Family history: neoplasm of skin (situation) Malignant hyperthermia Sleep apnea Problems: Disposition home CONDITION AT DISCHARGE: Improved, Stable Diet cardiac Scheduled Aspirin (Aspirin Ec) 1 TAB PO DAILY Carboxymethylcellulos/Glycerin (Refresh Optive Eye Drops) 1 DROP OP QID ( Reported) Clopidogrel Bisulfate (Clopidogrel) 1 TAB PO DAILY Duloxetine Hcl (Cymbalta) 1 CAP PO DAILY (Reported) Erythromycin Base (Erythromycin) 1 MARTI EACHEYE QHS (Reported) Lisinopril (Lisinopril) 1 TAB PO DAILY Locke-3 Fatty Acids/Fish Oil (Fish Oil 1,000 Mg Capsule) 1 EACH PO DAILY ( Reported) Phytosterol/Vit D3/ Fish Oil (Cholesterol Relief Softgel) 1 EACH PO DAILY ( Reported) Polymyxin B Sulf/Trimethoprim (Polymyxin B-Tmp Eye Drops) 1 DROP EACHEYE BID ( Reported) Triamcinolone Acetonide (Nasacort) 2 SPRAY NS DAILY (Reported) Warfarin Sodium (Coumadin) 1 TAB PO DAILY (Reported) Scheduled PRN Acetaminophen With Codeine (Tylenol With Codeine #3 Tablet) 1 TAB PO PRN PRN PRN PAIN (Reported) Cetirizine Hcl (Cetirizine Hcl) 10 MG PO DAILY PRN PRN ALLERGIES (Reported) Diazepam (Diazepam) 1 TAB PO PRN PRN PRN ANXIETY / AGITATION (Reported) Follow Up pcp and card in 2 weeks JESSICA MAURICE MD Jan 20, 2017 13:44
[2017-01-20] MEDS ORDERED: EZET10TA26 PO (14:30)
[2017-01-20] MEDS ORDERED: EZETIMIBE 10 MG TABLET. PO SCH (14:30)
[2017-01-20] MEDS ORDERED: ISOS30TA4 PO (14:32)
[2017-01-20] MEDS ORDERED: PANT40TA5 PO (14:32)
== END 2017-01-20 15:00 | disposition home or self-care (01) | DRG 303 ==
LOC: 2 NORTH 19:30
PROVIDERS: ADMIT Internal Medicine; ATTEND Internal Medicine
DX: I25.110 Atherosclerotic heart disease of native coronary artery with unstable angina pectoris (principal); I47.1 Supraventricular tachycardia; E78.5 Hyperlipidemia, unspecified; F17.200 Nicotine dependence, unspecified, uncomplicated; F41.9 Anxiety disorder, unspecified; I10 Essential (primary) hypertension; K21.9 Gastro-esophageal reflux disease without esophagitis; Z81.8 Family history of other mental and behavioral disorders; Z82.0 Family history of epilepsy and other diseases of the nervous system; Z82.49 Family history of ischemic heart disease and other diseases of the circulatory system; Z82.5 Family history of asthma and other chronic lower respiratory diseases; Z83.3 Family history of diabetes mellitus; Z86.711 Personal history of pulmonary embolism; Z98.61 Coronary angioplasty status; I25.2 Old myocardial infarction; Z88.8 Allergy status to other drugs, medicaments and biological substances; Z79.899 Other long term (current) drug therapy; Z79.01 Long term (current) use of anticoagulants; Z86.718 Personal history of other venous thrombosis and embolism; R00.1 Bradycardia, unspecified
CPT/HCPCS: 36415; 80048; 80061; 82553; 84484; 85027; 85610; 93005; J2270; J2405

== ENCOUNTER 2017-01-25 19:27 | Inpatient (IN) | payer MEDICARE, OTHER ==
[~2017-01-25] VITALS: Ht 193 cm; Wt 111.1 kg
[~2017-01-25 19:27] MED LIST changes: +EZET10TA26 PO; +ISOS30TA4 PO; +PANT40TA5 PO
[2017-01-25] MEDS ORDERED: IV NORMAL SALINE 1000ML BAG 1,000 ML IV SCH (20:18)
--- NOTE | 2017-01-25 20:18 | PHYS DOC ---
Past Medical History Past Medical History: CAD, GERD, High Cholesterol, Hypertension, Other Additional Past Medical Histor: drop foot(rt) Past Surgical History: Appendectomy, Cholecystectomy, Other Additional Past Surgical Histo: right hip(hardware), cardiac stent lad 01/17/17 Alcohol Use: Rarely Drug Use: None Adult General Chief Complaint Chief Complaint: CHEST PAIN-CARDIAC NATURE HPI HPI Patient is a 56 year old male who presents with complaint of chest pain that started approximately an hour and a half prior to arrival. Patient states that he was trying to clear brush in his yard when he started getting pain along the left side of his chest. Patient states that the pain was 5 out of 10 initially. Patient states that the pain is still present but has improved. Patient currently rates his pain as 3 out of 10. Patient has history coronary artery disease and just recently had a cardiac catheterization one week ago and had a stent placed due to blockage. Patient states since stent placement he has still felt increasing fatigue and has had intermittent chest pain. The patient is currently on baby aspirin and warfarin therapy. Patient has not had any associated fevers or cough with his symptoms. Patient states that the pain stays in the left side of his chest and does not radiate. The patient has not taken any other medications to help with symptoms at this time. Review of Systems Review of Systems Constitutional: Fatigue, dizziness, Denies fever or chills [] Eyes: Denies change in visual acuity, redness, or eye pain [] HENT: Denies nasal congestion or sore throat [] Respiratory: Denies cough or shortness of breath [] Cardiovascular: Chest pain, denies edema [] GI: Denies abdominal pain, nausea, vomiting, bloody stools or diarrhea [] : Denies dysuria or hematuria [] Musculoskeletal: Denies back pain or joint pain [] Integument: Denies rash or skin lesions [] Neurologic: Denies headache, focal weakness or sensory changes [] Current Medications Current Medications Current Medications Medications (Trade) Dose Ordered Sig/Mary Start Time Stop Time Status Last Admin Dose Admin Aspirin 324 mg 324 mg 1X ONCE 01/25/17 20:30 01/25/17 20:31 DC 01/25/17 20:59 324 MG Fentanyl Citrate (Fentanyl 2ml Vial) 50 mcg PRN Q15MIN PRN 01/25/17 20:30 01/26/17 20:29 Ondansetron HCl (Zofran) 4 mg 1X ONCE 01/25/17 20:30 01/25/17 20:31 DC 01/25/17 21:00 4 MG Sodium Chloride (Iv Sodium Chloride 0.9% 1000ml Bag) 1,000 ml @ 100 mls/hr Q10H 01/25/17 20:18 01/26/17 06:17 01/25/17 21:00 100 MLS/HR Allergies Allergies Allergies Coded Allergies Type Severity Reaction Last Updated Verified citalopram Allergy Intermediate 01/17/17 Yes simvastatin Allergy Intermediate 01/17/17 Yes Physical Exam Physical Exam Constitutional: Alert, afebrile, appears in mild discomfort. [] HENT: Normocephalic, atraumatic, bilateral external ears normal, oropharynx moist, no oral exudates, nose normal. [] Eyes: PERRLA, EOMI, conjunctiva normal, no discharge. [] Neck: Normal range of motion, no tenderness, supple, no stridor. [] Cardiovascular:Heart rate regular rhythm, no murmur [] Lungs & Thorax: Bilateral breath sounds clear to auscultation [] Abdomen: Bowel sounds normal, soft, no tenderness, no masses, no pulsatile masses. [] Skin: Warm, dry, no erythema, no rash. [] Back: No tenderness, no CVA tenderness. [] Extremities: No tenderness, no cyanosis, no clubbing, ROM intact, no edema. [] Neurologic: Alert and oriented X 3, normal motor function, normal sensory function, no focal deficits noted. [] Current Patient Data Vital Signs Vital Signs Date Time Temp Pulse Resp B/P Pulse Ox O2 Delivery O2 Flow Rate FiO2 01/25/17 19:30 79 20 128/78 98 Room Air Lab Values Laboratory Tests Test 01/25/17 19:40 White Blood Count 6.8x10^3/uL (4.0-11.0) Red Blood Count 4.55x10^6/uL (4.30-5.70) Hemoglobin 14.6g/dL (13.0-17.5) Hematocrit 43.0% (39.0-53.0) Mean Corpuscular Volume 94fL (79-100) Mean Corpuscular Hemoglobin 32pg (25-35) Mean Corpuscular Hemoglobin Concent 34g/dL (31-37) Red Cell Distribution Width 12.9% (11.5-14.5) Platelet Count 242x10^3/uL (140-400) Neutrophils (%) (Auto) 61% (31-73) Lymphocytes (%) (Auto) 29% (24-48) Monocytes (%) (Auto) 7% (0-9) Eosinophils (%) (Auto) 2% (0-3) Basophils (%) (Auto) 1% (0-3) Neutrophils # (Auto) 4.2x10^3uL (1.8-7.7) Lymphocytes # (Auto) 2.0x10^3/uL (1.0-4.8) Monocytes # (Auto) 0.5x10^3/uL (0.0-1.1) Eosinophils # (Auto) 0.1x10^3/uL (0.0-0.7) Basophils # (Auto) 0.0x10^3/uL (0.0-0.2) Sodium Level 137mmol/L (136-145) Potassium Level 3.7mmol/L (3.5-5.1) Chloride Level 100mmol/L (98-107) Carbon Dioxide Level 26mmol/L (21-32) Anion Gap 11 (6-14) Blood Urea Nitrogen 16mg/dL (8-26) Creatinine 1.2mg/dL (0.7-1.3) Estimated GFR (Cockcroft-Gault) 62.6 Glucose Level 121mg/dL (70-99) H Calcium Level 8.6mg/dL (8.5-10.1) Magnesium Level 1.7mg/dL (1.8-2.4) L Total Bilirubin 0.4mg/dL (0.2-1.0) Direct Bilirubin 0.1mg/dL (0.0-0.2) Aspartate Amino Transferase (AST) 17U/L (15-37) Alanine Aminotransferase (ALT) 25U/L (16-63) Alkaline Phosphatase 71U/L (46-116) Creatine Kinase 95U/L (39-308) Creatine Kinase MB (Mass) Pending Creatine Kinase MB Relative Index Pending Troponin I Quantitative < 0.017ng/mL (0.000-0.055) DN-Kat-C-Type Natriuretic Peptide 38pg/mL (0-124) Total Protein 7.3g/dL (6.4-8.2) Albumin 3.5g/dL (3.4-5.0) Laboratory Tests 01/25/17 19:40 Laboratory Tests 01/25/17 19:40 EKG EKG Interpreted by me: Heart rate 72, sinus rhythm, normal intervals, normal axis, no acute ST/T-wave abnormalities present [] Radiology/Procedures Radiology/Procedures One view AP chest x-ray interpreted by me: No infiltrates, no effusions, normal cardiac silhouette [] Course & Med Decision Making Course & Med Decision Making Pertinent Labs and Imaging studies reviewed. (See chart for details) Patient was given aspirin in the emergency department. Patient's initial troponin was negative. The patient states that he is very concerned about his symptoms as he has not felt well since initially receiving his stent one week ago. He stated that when he discussed plan of care with cardiology that if he had further symptoms that he would need to come in and he may need to have an additional heart. I discussed case with Dr. Ruiz of cardiology. After discussion, he agreed to follow with patient in hospital for possible cardiac catheterization tomorrow. Patient a minute to Dr. Gutiérrez. Dragon Disclaimer Dragon Disclaimer This electronic medical record was generated, in whole or in part, using a voice recognition dictation system. Departure Departure Impression: Primary Impression: Chest pain Additional Impression: S/P cardiac cath Disposition: ADMITTED INPATIENT Admitting Physician: Other Condition: GUARDED Referrals: UNKNOWN PCP NAME (PCP) Problem Qualifiers Primary Impression: Chest pain Chest pain type: unspecified Qualified Code: R07.9 - Chest pain, unspecified JUICE COLIN MD Jan 25, 2017 20:18
[2017-01-25] MEDS ORDERED: FENTANYL PF 100 MCG/2 ML VIAL. IV PRN ×2 (20:30→22:00)
[2017-01-25] MEDS ORDERED: ONDANSETRON PF 4 MG/2 ML VIAL. IV ONE (20:30)
[2017-01-25] MEDS ORDERED: ASPIRIN CHEWABLE 81 MG TABLET. PO ONE (20:30)
[2017-01-25 20:34] LABS: BASO % 1 % (0-3); EOS % 2 % (0-3); HEMOGLOBIN 14.6 g/dL (13.0-17.5); LYMPH % 29 % (24-48); MEAN CORPUSCULAR HEMOGLOBIN 32 pg (25-35); MEAN CORPUSCULAR HGB CONC 34 g/dL (31-37); MEAN CORPUSCULAR VOLUME 94 fL (79-100); MONO % 7 % (0-9); NEUT % 61 % (31-73); PLATELET COUNT 242 x10^3/uL (140-400); RED BLOOD COUNT 4.55 x10^6/uL (4.30-5.70); RED CELL DISTRIBUTION WIDTH 12.9 % (11.5-14.5); WHITE BLOOD COUNT 6.8 x10^3/uL (4.0-11.0)
[2017-01-25 21:00] LABS: CALCIUM 8.6 mg/dL (8.5-10.1); CREATININE 1.2 mg/dL (0.7-1.3); GFR 62.6; POTASSIUM 3.7 mmol/L (3.5-5.1)
[2017-01-25 21:10] LABS: ALBUMIN 3.5 g/dL (3.4-5.0); DIRECT BILIRUBIN 0.1 mg/dL (0.0-0.2); MAGNESIUM 1.7 mg/dL (1.8-2.4); TOTAL BILIRUBIN 0.4 mg/dL (0.2-1.0); TOTAL PROTEIN 7.3 g/dL (6.4-8.2)
[2017-01-25] MEDS ORDERED: ACETAMINOPHEN 325 MG TABLET. PO PRN (22:00)
[2017-01-25] MEDS ORDERED: ONDANSETRON PF 4 MG/2 ML VIAL. IV PRN (22:00)
--- NOTE | 2017-01-25 22:36 | ACF ---
Admission Forms Criteria CHEST PAIN Clinical Indications for Admission to Inpatient Care (Place 'X' for any and all applicable criteria): Admission is indicated for chest pain and ANY ONE of the following(1)(2)(3)(4)(5 ): [ ]I. Angina with acute coronary syndrome (Also use Myocardial Infarction or Angina guideline) [ ]II. Hemodynamic instability [X]III. Angina needing acute intervention as indicated by ALL of the following( 11)(12): [X]a) Unstable angina is present as indicated by angina that is ANY ONE of the following: [ ]i) New onset [ ]ii) Nocturnal [ ]iii) Prolonged at rest [X]iv) Progressive [X]b) Angina warrants acute intervention as indicated by ANY ONE of the following: [ ]i) Recurrent angina (e.g, not responding as previously to treatment) [ ]ii) Angina at rest or with low-level activities despite initial medical therapy [ ]iii) New or presumably new ST-segment depression on ECG [ ]iv) Signs or symptoms of heart failure (eg, dyspnea, pulmonary edema) [ ]v) New or worsening mitral regurgitation [ ]vi) Hemodynamic instability [ ]vii) Dangerous arrhythmia (eg, sustained ventricular tachycardia) [X]viii) History of percutaneous coronary intervention within 6 months [ ]ix) History of coronary artery bypass graft surgery [ ]x) GEORGE risk score of 2 or greater[A] [ ]xi) History of Diabetes(14) [ ]xii) High-risk cardiac ischemia findings on noninvasive testing (e.g, echocardiogram, treadmill testing, nuclear scan) [ ]xiii) Chronic renal insufficiency (ie, estimated GFR less than 60 mL/min/1.732m) [ ]xiv) Left ventricular ejection fraction less than 40% [ ]IV. Evidence of UT (eg, cardiac biomarkers positive, ST-segment elevation on ECG) also use Myocardial Infarction Criteria Form. [ ]V. Pulmonary edema [ ]. Respiratory distress [ ]VII. Chest pain indicative of serious diagnosis other than coronary artery disease (eg, aortic dissection) [ ]VIII. Contraindications and/or Inappropriate clinical situations for Observational Care in patients with Chest Pain, when ANY ONE of the following is required: [ ]a) Patient with risk factor for pulmonary embolism, acute coronary syndrome and myocardial infarction (18) [ ]b) Patient with Pulmonary embolism require an average LOS of 4.3 days, therefore emergency department observation management is inappropriate 18,23 [ ]c) Painful condition/s in the elderly, have the highest rate of recidivism after emergency department observation management (10.8%) 20,21,22 [ ]d) Elevated cardiac biomarker requires intensive and exhaustive care (19) [ ]IX. General contraindications and/or Inappropriate clinical situations for Observational Care in patients with Chest Pain, when ANY ONE of the following is required: [ ]a) Prediction of prolongation of LOS based on ANY ONE of the following may be considered as a contraindication for observational care 2, 3, 4, 5, 6, 7, 8, 9, 10, 11 [ ]i) Age > 65 yrs. [ ]ii) Patient arriving by ambulance [ ]iii) Patient with high acuity [ ]iv) Patient requiring vital sign monitoring [ ]v) Patient on IV medication [ ]b) Systolic blood pressures 180mmHg 3,12 [ ]c) Patient with altered mental status including delirium and other alteration of consciousness, (3) [ ]d) Patient whose discharge disposition will be to a assisted home or rehabilitation home should not be managed in Emergency Department Observation Unit. CMS rule requires 3 days hospital stay before such placement. 3,13 [ ]e) Patient with failure to thrive due to broad array of etiologies 3,16,17 [ ]f) Inability to ambulate 3,14 Extended stay beyond goal length of stay may be needed for (1)(28): [ ]a) Specific condition diagnosed after evaluation (eg, pulmonary embolism, aortic dissection) [ ]b) Unstable angina [ ]c) Continued suspicion of acute coronary syndrome with inability to complete needed cardiac evaluation (eg, patient clinically unable to undergo stress testing) [ ]d) Myocardial infarction (Contents from ANGINA and CHEST PAIN clinical indications for admission to inpatient care have been integrated in this form) The original [employer] content created by [employer] has been revised. The portions of the content which have been revised are identified through the use of italic text or in bold, and [employer] has neither reviewed nor approved the modified material. All other unmodified content is copyright [employer]. Please see references footnoted in the original [facility] edition 2016 Admission Criteria Met?: Yes SERGIO PEREZ Jan 25, 2017 22:36
[2017-01-25 22:50] VITALS: BP 112/70
[2017-01-25 23:00] VITALS: BP 112/70
[2017-01-26 00:14] LABS: CKMB INDEX 0.7 % (0-4); CKMB MASS 0.7 ng/mL (0.0-3.6)
[2017-01-26] MEDS ORDERED: WARF7.5T6 PO (00:38)
--- NOTE | 2017-01-26 01:22 | EKG ---
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
[2017-01-26 03:00] VITALS: BP 110/54
[2017-01-26 04:13] LABS: BASO % 1 % (0-3); EOS % 2 % (0-3); HEMOGLOBIN 13.1 g/dL (13.0-17.5); LYMPH % 38 % (24-48); MEAN CORPUSCULAR HEMOGLOBIN 32 pg (25-35); MEAN CORPUSCULAR HGB CONC 34 g/dL (31-37); MEAN CORPUSCULAR VOLUME 95 fL (79-100); MONO % 10 % (0-9); NEUT % 50 % (31-73); PLATELET COUNT 196 x10^3/uL (140-400); WHITE BLOOD COUNT 5.2 x10^3/uL (4.0-11.0)
[2017-01-26 04:18] LABS: CALCIUM 8.3 mg/dL (8.5-10.1); CREATININE 1.1 mg/dL (0.7-1.3); GFR 69.2; POTASSIUM 4.1 mmol/L (3.5-5.1)
[2017-01-26] MEDS: IV NORMAL SALINE 1000ML BAG 1,000 ML IV SCH ×2 (06:39→07:53)
[2017-01-26 07:55] VITALS: BP 109/64
--- NOTE | 2017-01-26 08:36 | RAD ---
Portable chest, 01/25/2017: History: Left-sided chest pain The heart size and pulmonary vascularity are normal. A density at the cardiac apex is probably due to a prominent epicardial fat pad. No acute infiltrates are seen. No pleural fluid is evident. IMPRESSION: No acute cardiopulmonary abnormality is detected.
--- NOTE | 2017-01-26 09:28 | PDOC2 ---
FABIO KATE GAME DESIGNER 01/26/17 0928: CARDIAC CONSULT DATE OF CONSULT Date of Consult DATE: 01/26/17 TIME: 09:17 REASON FOR CONSULT Reason for Consult: Chest Pain REFERRING PHYSICIAN Referring Physician: Dr. Fisher SOURCE Source: Chart review, Patient HISTORY OF PRESENT ILLNESS HISTORY OF PRESENT ILLNESS This is a 56 yo male, with a history of hypertension, hyperlipidemia, PE/DVT on OAC, PSVT, and CAD s/p PCI/ ELDON to the LAD this past Tuesday, who presented with complaints of ongoing chest pain. Most recently, patient reports he was picking up sticks yesterday when he developed aching in his left chest. Associated with dizziness, nausea, mild SOA, and hands were "shaking". Sat down for a few minutes- felt like his heart was "racing". Went inside to check HR/BP- reports BP at 137/60 and HR at 93. Decided to come to the emergency room for further evaluation. Reports pain occurred intermittently while in the car and in the ED. Presently, feels slight pressure in his left chest. Patient reports he has been experiencing similar pain intermittently over the last couple of years. Cannot identify and specific precipitating factors. Episodes generally last approximately 2-3 mins in duration and relieve without intervention. Reports compliance with antiplatelet therapy. PAST MEDICAL HISTORY Cardiovascular: CAD, HTN, Hyperlipidemia, Other (SVT) Pulmonary: Other (PE/DVT on warfarin therapy ) CENTRAL NERVOUS SYSTEM: Periperal neuropathy GI: GERD Heme/Onc: No pertinent hx Hepatobiliary: No pertinent hx Psych: Anxiety, Depression, Other (PTSD ) Rheumatologic: No pertinent hx Infectious disease: No pertinent hx ENT: No pertinent hx Renal/: No pertinent hx Endocrine: No pertinent hx Dermatology: No pertinent hx PAST SURGICAL HISTORY Past Surgical History: Appendectomy, Cholecystectomy FAMILY HISTORY Family History: Hypertension SOCIAL HISTORY Smoke: No ALCOHOL: none Drugs: None Lives: with Family CURRENT MEDICATIONS CURRENT MEDICATIONS Current Medications Medications (Trade) Dose Ordered Sig/Mary Route PRN Reason Start Time Stop Time Status Last Admin Dose Admin Aspirin 324 mg 324 mg 1X ONCE PO 01/25/17 20:30 01/25/17 20:31 DC 01/25/17 20:59 Sodium Chloride (Iv Sodium Chloride 0.9% 1000ml Bag) 1,000 ml @ 100 mls/hr Q10H IV 01/25/17 20:18 01/26/17 06:17 DC 01/25/17 21:00 Fentanyl Citrate (Fentanyl 2ml Vial) 50 mcg PRN Q15MIN PRN IV PAIN GREATER THAN 3/10 01/25/17 20:30 01/26/17 20:29 01/25/17 21:56 Ondansetron HCl 4 mg 4 mg 1X ONCE IV 01/25/17 20:30 01/25/17 20:31 DC 01/25/17 21:00 Sodium Chloride (Iv Sodium Chloride 0.9% 1000ml Bag) 1,000 ml @ 100 mls/hr Q10H IV 01/25/17 21:53 01/26/17 21:52 01/26/17 06:39 ALLERGIES ALLERGIES: Coded Allergies: citalopram (Verified Allergy, Intermediate, 01/17/17) simvastatin (Verified Allergy, Intermediate, 01/17/17) ROS Review of System 14 point ROS conducted with pertinent positives noted above in HPI. PHYSICAL EXAM General: Alert, Oriented X3, Cooperative, No acute distress HEENT: Atraumatic, Mucous membr. moist/pink Lungs: Clear to auscultation, Normal air movement Heart: Regular rate, Normal S1, Normal S2, No murmurs, Other (tele SB with rate 50-58) Abdomen: Soft, No tenderness Extremities: No edema, Normal pulses Skin: No significant lesion Neuro: Normal speech, Sensation intact Psych/Mental Status: Mental status NL, Mood NL MUSCULOSKELETAL: No joint tenderness VITALS VITALS Vital Signs Date Time Temp Pulse Resp B/P Pulse Ox O2 Delivery O2 Flow Rate FiO2 01/26/17 08:00 Room Air 01/26/17 07:55 98.0 59 20 109/64 97 98.0 LABS Lab: Laboratory Tests Test 01/25/17 19:40 01/26/17 03:24 White Blood Count 6.8x10^3/uL (4.0-11.0) 5.2x10^3/uL (4.0-11.0) Red Blood Count 4.55x10^6/uL (4.30-5.70) 4.10x10^6/uL (4.30-5.70) Hemoglobin 14.6g/dL (13.0-17.5) 13.1g/dL (13.0-17.5) Hematocrit 43.0% (39.0-53.0) 39.0% (39.0-53.0) Mean Corpuscular Volume 94fL (79-100) 95fL (79-100) Mean Corpuscular Hemoglobin 32pg (25-35) 32pg (25-35) Mean Corpuscular Hemoglobin Concent 34g/dL (31-37) 34g/dL (31-37) Red Cell Distribution Width 12.9% (11.5-14.5) 13.0% (11.5-14.5) Platelet Count 242x10^3/uL (140-400) 196x10^3/uL (140-400) Neutrophils (%) (Auto) 61% (31-73) 50% (31-73) Lymphocytes (%) (Auto) 29% (24-48) 38% (24-48) Monocytes (%) (Auto) 7% (0-9) 10% (0-9) Eosinophils (%) (Auto) 2% (0-3) 2% (0-3) Basophils (%) (Auto) 1% (0-3) 1% (0-3) Neutrophils # (Auto) 4.2x10^3uL (1.8-7.7) 2.6x10^3uL (1.8-7.7) Lymphocytes # (Auto) 2.0x10^3/uL (1.0-4.8) 2.0x10^3/uL (1.0-4.8) Monocytes # (Auto) 0.5x10^3/uL (0.0-1.1) 0.5x10^3/uL (0.0-1.1) Eosinophils # (Auto) 0.1x10^3/uL (0.0-0.7) 0.1x10^3/uL (0.0-0.7) Basophils # (Auto) 0.0x10^3/uL (0.0-0.2) 0.0x10^3/uL (0.0-0.2) Sodium Level 137mmol/L (136-145) 139mmol/L (136-145) Potassium Level 3.7mmol/L (3.5-5.1) 4.1mmol/L (3.5-5.1) Chloride Level 100mmol/L (98-107) 103mmol/L (98-107) Carbon Dioxide Level 26mmol/L (21-32) 30mmol/L (21-32) Anion Gap 11 (6-14) 6 (6-14) Blood Urea Nitrogen 16mg/dL (8-26) 20mg/dL (8-26) Creatinine 1.2mg/dL (0.7-1.3) 1.1mg/dL (0.7-1.3) Estimated GFR (Cockcroft-Gault) 62.6 69.2 Glucose Level 121mg/dL (70-99) 101mg/dL (70-99) Calcium Level 8.6mg/dL (8.5-10.1) 8.3mg/dL (8.5-10.1) Magnesium Level 1.7mg/dL (1.8-2.4) Total Bilirubin 0.4mg/dL (0.2-1.0) Direct Bilirubin 0.1mg/dL (0.0-0.2) Aspartate Amino Transf (AST/SGOT) 17U/L (15-37) Alanine Aminotransferase (ALT/SGPT) 25U/L (16-63) Alkaline Phosphatase 71U/L (46-116) Creatine Kinase 95U/L (39-308) Creatine Kinase MB (Mass) 0.7ng/mL (0.0-3.6) Creatine Kinase MB Relative Index 0.7% (0-4) Troponin I Quantitative < 0.017ng/mL (0.000-0.055) < 0.017ng/mL (0.000-0.055) UB-Wnx-E-Type Natriuretic Peptide 38pg/mL (0-124) Total Protein 7.3g/dL (6.4-8.2) Albumin 3.5g/dL (3.4-5.0) ECHOCARDIOGRAM ECHOCARDIOGRAM <Conclusion> The left ventricle is normal size. The left ventricular systolic function is normal and the ejection fraction is within normal range. The Ejection Fraction is 55-60%. The aortic valve is normal in structure and function. The mitral valve is normal in structure and function. Doppler and Color Flow revealed no mitral valve regurgitation noted. The tricuspid valve is normal in structure and function. Doppler and Color Flow revealed trace tricuspid regurgitation. The PA pressure was estimated at 32 mmHg. DATE: 06/04/14 1207 HEART CATH HEART CATH FINDINGS 1. Hemodynamics: Left ventricular end-diastolic pressure of 18 mmHg. No pullback gradient across the aortic valve. 2. Left ventriculography: Normal left ventricle systolic function with ejection fraction estimated at 55%. No significant mitral regurgitation seen. 3. Coronary angiography: a. The left main coronary artery arose from the left sinus of Valsalva, gave rise to the left anterior descending and left circumflex arteries and did not show any significant stenosis. b. The left anterior descending artery showed 90% stenosis involving the proximal to midsegment. c. The left circumflex artery did not show any significant stenosis. d. The right coronary artery was a large and dominant vessel arising from the right sinus of Valsalva that did not show any significant stenosis. Conclusion 1. Severe single-vessel coronary artery disease 2. Successful PCI/drug eluting stent placement to the left anterior descending artery 3. Normal left ventricle systolic function with ejection fraction estimated at 55% DATE: 01/17/17 1322 ASSESSMENT/PLAN ASSESSMENT/PLAN 1. Chest pain s/p PCI/ELDON to LAD 01/17/17 troponin series normal- AMI ruled out. given reoccurrence of chest pain, will repeat coronary angiogram for further definitive evaluation. R/b/a discussed with patient and is agreeable. Continue medical management/ secondary prevention 2. Hypertension Controlled with meds 3. Bradycardia, sinus asymptomatic no significant pauses noted on telemetry. avoid AV don blocking agents 4. PSVT recent event monitor with few episodes of atrial tachycardia Toprol recommended for suppression but unable to tolerate due to bradycardia. 5. Hyperlipidemia LDL 163 intolerant to statins; on Zetia 6. GERD on PPI 7. H/o PE/DVT on Warfarin. INR 1.9 8. Anxiety management per PCP Problems: ANAMARIA TREVIÑO MD 01/26/17 1652: CARDIAC CONSULT ALLERGIES ALLERGIES: Coded Allergies: citalopram (Verified Allergy, Intermediate, 01/17/17) simvastatin (Verified Allergy, Intermediate, 01/17/17) ASSESSMENT/PLAN ASSESSMENT/PLAN Patient seen and examined. Agree with BOG WORKER's assessment and plan. Chest pain with somewhat atypical features but patient stated that this is similar to the pain he had prior to her recent angioplasty. Myocardial infarction was ruled out. Plan for cardiac catheterization for further evaluation. Risks and benefits were explained. Telemetry did not show any significant arrhythmia so far. Continue dual antiplatelet therapy. Thank you for the consultation. Problems: FABIO KATE APRN Jan 26, 2017 09:28 ANAMARIA TREVIÑO MD Jan 26, 2017 16:52
[2017-01-26 11:03] VITALS: BP 112/69
[2017-01-26] MEDS ORDERED: IOHEXOL 300 MG/ML 100ML VIAL. ONE (11:53)
[2017-01-26] MEDS ORDERED: LIDOCAINE 2% 20 ML VIAL. ONE (11:53)
[2017-01-26] MEDS ORDERED: NITROGLYCERIN 200 MCG/2 ML SYRINGE FOR CATH/VASC LAB. ONE (11:54)
[2017-01-26] MEDS ORDERED: HEPARIN for IV BOLUS 10,000 UNIT/10 ML VIAL. ONE (11:55)
[2017-01-26] MEDS ORDERED: VERAPAMIL 5 MG/2 ML VIAL. ONE (11:55)
[2017-01-26] MEDS ORDERED: FENTANYL PF 250 MCG/5 ML VIAL. ONE (11:55)
[2017-01-26] MEDS ORDERED: MIDAZOLAM HCL/PF 5 MG/5 ML VIAL. ONE (11:55)
--- NOTE | 2017-01-26 11:59 | PDOC ---
MODERATE SEDATION ASSESSMENT RISKS/ALTERNATIVES Risks/Alternatives Risks and alternatives of this type of sedation and procedure discussed with: RISK/ALTERNATIVES: Patient H & P ON CHART H & P H & P on chart and reviewed for co-morbid conditions and appropriate labs. H&P ON CHART: Yes STATUS PREG STATUS ASSESSED: N/A MEDS/ALLERGIES REVIEWED Meds/Allergies Reviewed Medications and Allergies including time and route of recently administered narcotics and sedatives. MEDS/ALLERGIES REVIEWED: Yes ASA RATING ASA RATING: II AIRWAY ASSESSMENT Airway Assessment Airway patency, oral function limitations, presence of caps, crowns, dentures, partials, and ability to extend neck assessed. AIRWAY ASSESSMENT: Yes MALLAMPATI SCORE MALLAMPATI SCORE: II PRE-SEDATION ASSESSMENT PRE-SEDATION ASSESSMENT: Yes ANAMARIA TREVIÑO MD Jan 26, 2017 11:58
[2017-01-26] MEDS ORDERED: NITROGLYCERIN 200 MCG/2 ML SYRINGE FOR CATH/VASC LAB. IART ONE (12:15)
[2017-01-26] MEDS ORDERED: MIDAZOLAM HCL/PF 5 MG/5 ML VIAL. IV ONE (12:15)
[2017-01-26] MEDS ORDERED: IOHEXOL 300 MG/ML 100ML VIAL. IART ONE (12:15)
[2017-01-26] MEDS ORDERED: FENTANYL PF 250 MCG/5 ML VIAL. IV ONE (12:15)
[2017-01-26] MEDS ORDERED: HEPARIN for IV BOLUS 10,000 UNIT/10 ML VIAL. IART ONE (12:15)
[2017-01-26] MEDS ORDERED: VERAPAMIL 5 MG/2 ML VIAL. IART ONE (12:15)
[2017-01-26] MEDS ORDERED: BIVALIRUDIN 250 MG VIAL. IV ONE (12:24)
[2017-01-26] MEDS ORDERED: CONTRAST GIVEN MC PRN (12:30)
[2017-01-26 12:32] VITALS: BP 110/74
[2017-01-26] MEDS ORDERED: IV 1/2 NORMAL SALINE 1,000 ML IV SCH (12:41)
[2017-01-26] MEDS ORDERED: NITROGLYCERIN SUBLINGUAL 0.4 MG BOTTLE OF 25. SL PRN (12:45)
--- NOTE | 2017-01-26 12:46 | CARD ---
APPROVED REPORT Procedure(s) performed: Left heart catheterization, selective coronary angiography via right transrad ial approach INDICATION The indication(s) include : unstable angina . PROCEDURE NARRATIVE After explaining the risks, benefits and alternative options, informed consent was obtained from saray ent. Patient was brought to the cardiac Financial Services Intern and right wrist was prepped and draped in the usual fashion after confirming a positive modified Peyman's test. Arterial access was obtained in the righ t radial artery and a 6 Kiswahili sheath was inserted. 6 Kisw[place]ili Daniel catheter was used to perform keith ective angiography of the left and right coronary arteries. Transaortic gradient and LVEDP measuremen t was made with the same catheter. Patient tolerated the procedure well. Hemostasis was achieved usi ng TR band. There were no immediate complications. The following findings were noted. FINDINGS 1. Hemodynamics: Left ventricular end-diastolic pressure of 18 mmHg. No pullback gradient across th e aortic valve. 2. Coronary angiography: a. The left main coronary artery arose from the left sinus of Valsalva, gave rise to the left anteri or descending and left circumflex arteries and did not show any significant stenosis. b. The left anterior descending artery showed widely patent recently placed stent in the proximal to midsegment. The previously described small diagonal branch that was jailed by the stent now has good flow. c. The left circumflex artery did not show any significant stenosis. d. The right coronary artery was a large and dominant vessel arising from the right sinus of Valsalv a that did not show any significant stenosis. Conclusion No significant coronary artery disease with widely patent recently placed stent in the left anterior descending artery Recommendations Medical Therapy
[2017-01-26 15:32] VITALS: BP 106/67
--- NOTE | 2017-01-26 15:52 | SSS ---
ADMIT DATE: 01/26/2017 CHIEF COMPLAINT: Chest pain. HISTORY OF PRESENT ILLNESS: The patient is a pleasant 56-year-old male who presented with chest pain. He apparently had a stent a week ago. He was concerned that he could be having another coronary issue. He was admitted to the telemetry floor this morning and was taken to the Heliotherapist. Apparently, the catheterization was clean. He has now been cleared for discharge. PAST MEDICAL HISTORY: Recent coronary stents, GERD, hyperlipidemia, hypertension, appendectomy, cholecystectomy, and right hip hardware. ALLERGIES: CITALOPRAM AND SIMVASTATIN. FAMILY HISTORY: Coronary artery disease. SOCIAL HISTORY: Does not drink, smoke, or take drugs. MEDICATIONS: Reviewed. REVIEW OF SYSTEMS: GENERAL: No history of weight change, weakness, or fevers. SKIN: No bruising, hair changes, or rashes. EYES: No blurred, double, or loss of vision. NOSE AND THROAT: No history of nosebleeds, hoarseness, or sore throat. HEART: No history of palpitations, chest pain, or shortness of breath on exertion. LUNGS: Denies cough, hemoptysis, wheezing, or shortness of breath. GASTROINTESTINAL: Denies changes in appetite, nausea, vomiting, diarrhea, or constipation. GENITOURINARY: No history of frequency, urgency, hesitancy, or nocturia. NEUROLOGIC: Denies history of numbness, tingling, tremor, or weakness. PSYCHIATRIC: No history of panic, anxiety, or depression. ENDOCRINE: No history of heat or cold intolerance, polyuria, or polydipsia. EXTREMITIES: Denies muscle weakness, joint pain, pain on walking, or stiffness. PHYSICAL EXAMINATION: VITAL SIGNS: Stable. Temperature afebrile, pulse 62, respirations 18, and blood pressure 112/69. GENERAL: He is alert and cooperative. HEART: Normal S1 and S2. LUNGS: Clear. ABDOMEN: Soft, positive bowel sounds. EXTREMITIES: No edema. SKIN: No rashes. PSYCHIATRIC: Stable. VASCULAR: Good capillary refill. ENDOCRINE: No thyromegaly. LYMPHATICS: No cervical nodes. HEMATOPOIETIC: No bruising. LABORATORY DATA: Troponin is 0, and we repeated it 2 more times. It was 0 again. BNP is normal at 38. EKG shows sinus rhythm. ASSESSMENT AND PLAN: Resolving chest pain of unclear nature, suspect possible gastroesophageal disease. The patient has been cleared for discharge after his cardiac catheterization was clean. DISPOSITION: Home. ACTIVITY: As tolerated. DIET: Low sodium. MEDICATIONS: Please see the MRAD. TOTAL TIME: 32 minutes. ANASTASIA MEJIA DO DR: FELICITY/marcial JOB#: [id number] / [id number]
[2017-01-26 19:39] VITALS: BP 120/78
== END 2017-01-26 20:00 | disposition home or self-care (01) | DRG 392 ==
LOC: ER 19:27 → 2 NORTH 21:14
PROVIDERS: ADMIT Internal Medicine Hematology & Oncology; ATTEND Internal Medicine Hematology & Oncology
PROC: 4A023N7 Measurement of Cardiac Sampling and Pressure, Left Heart, Percutaneous Approach (ICD-10-PCS; principal; 2017-01-26)
PROC: B2111ZZ Fluoroscopy of Multiple Coronary Arteries using Low Osmolar Contrast (ICD-10-PCS; 2017-01-26)
DX: K21.9 Gastro-esophageal reflux disease without esophagitis (principal); I47.1 Supraventricular tachycardia; I10 Essential (primary) hypertension; M21.371 Foot drop, right foot; G62.9 Polyneuropathy, unspecified; F32.9 Major depressive disorder, single episode, unspecified; F43.10 Post-traumatic stress disorder, unspecified; R00.1 Bradycardia, unspecified; E78.5 Hyperlipidemia, unspecified; F41.9 Anxiety disorder, unspecified; Z90.49 Acquired absence of other specified parts of digestive tract; Z95.5 Presence of coronary angioplasty implant and graft; Z86.711 Personal history of pulmonary embolism; Z82.49 Family history of ischemic heart disease and other diseases of the circulatory system; Z88.8 Allergy status to other drugs, medicaments and biological substances; I25.10 Atherosclerotic heart disease of native coronary artery without angina pectoris
CPT/HCPCS: 36415; 71010; 80048; 80076; 82553; 83735; 83880; 84484; 85027; 93005; 93458; 96361; 96374; 96375; C1769; C1892; J2250; J2405; J3010; J3490; J7030; Q9967; 99285-25

== ENCOUNTER → 2017-08-18 | Outpatient (CLI) | payer MEDICARE, OTHER ==
[~2017-08-18] MED LIST changes: +ASPI-612 PO; -ASPI81TA9 PO; -HYDR-2666 PO; +HYDR-2758 PO; +METO-239 PO; -METO25TA9 PO; +REGADENOSON 0.4 MG/5 ML DISP.SYRIN. IV ONE; -WARF10TA PO; +WARF10TA45 PO; +WARF7.5T6 PO
--- NOTE | 2017-08-18 13:11 | RAD ---
APPROVED REPORT Test Type: Pharmacological Stress Nurse/Tech: MELBA Cox Test Indications: chest pain Cardiac History: see EMR, stent 10/19, HTN Medications: see EMR Medical History: see EMR Resting ECG: SB Resting Heart Rate: 54 bpm Resting Blood Pressure: 119/73mmHg Pretest Chest Pain: no Nurse/Tech Notes S1S2, regular, lungs CTA, no chest pain/SOA at this time Consent: The procedure was explained to the patient in lay terms. Informed consent was witnessed. Benito eout was entered into [employer]. History and Stress Test performed by RT Milana Lombardi) (N) Pharm. Details Pharmacologic stress testing was performed using 0.4mg per 5ml of regadenoson given intravenously ove r 7-10 seconds. Stress Symptoms chest discomfort that subsided after a couple minutes. VSS POST EXERCISE Reason for Termination: Infusion complete Blood Pressure response to exercise: Normal blood pressure response during stress. Heart Rate response to exercise: WNL Chest Pain: Yes. chest discomfort Arrhythmia: No. ST Change: No. INTERPRETATION Stress EKG Conclusion: no ischemia Imaging Protocol IMAGE PROTOCOL: Rest Tc-99m/stress Tc-99m 1 day Rest: Stress: Viability: Radiopharm.Tc99m [id number] Sestamibi Dose11.5mCi 32.1mCi Duration 20min. 15min. Img Date 08/18/2017 08/18/2017 Inj-Img [id number]. 60min. Rest Admin Site:IV - Right AntecubitalAdministrator:RT Louis (R)(N) Stress Admin Site: IV - Right AntecubitalAdministrator: RT Maria C (R)(N) STRESS DATA End Diast. Vol.122.0mlAv. Heart Rate67.0bpm End Syst. Vol.36.0mlCO Index BSA0.0L/min Myocardial Jjmz046.0gEject. Ryrxzjqq78.0% Stress Rates Pk. Fill Rate2.92EDV/secLVtime Pk. Fill 170.29msec Pk. Empty Rate3.62ESV/secLVtime Pk. Dqghr329.86msec 10/05 Pk. Fill1.82EDV/sec Stress Scores Regional WT0.00Summed WT0.00 Regional WM0.00Summed WM1.00 The rest and stress images show normal perfusion, normal contraction and thickening. LV Perf. Quant 17 Seg. SSS0.00 17 Seg. SRS0.00 17 Seg. SDS0.00 Stress Defect Extent (% LAD)0.00Rest Defect Extent (% LAD)0.00Rev. Defect Extent (% LAD)0.00 Stress Defect Extent (% LCX) 0.00Rest Defect Extent (% LCX)0.00Rev. Defect Extent (% LCX)0.00 Stress Defect Extent (% RCA)0.00Rest Defect Extent (% RCA)0.00Rev. Defect Extent (% RCA)0.00 Stress Defect Extent (% NICK)0.00Rest Defect Extent (% NICK)0.00Rev. Defect Extent (% NICK)0.00 Other Information Quality:Good Risk Assessment: Low Risk Conclusion 1. No evidence of EKG changes with stress testing. 2. Normal perfusion at stress/rest. 3. Low risk study. 4. EF > 60%.
== END | disposition home or self-care (01) ==
LOC: NM 07:36
PROVIDERS: ATTEND Internal Medicine Cardiovascular Disease
DX: I25.118 Atherosclerotic heart disease of native coronary artery with other forms of angina pectoris (principal); I10 Essential (primary) hypertension; I49.5 Sick sinus syndrome; Z87.891 Personal history of nicotine dependence
CPT/HCPCS: 78452; 93017; 96374; 96375; 96376; A9500; J2785

== ENCOUNTER 2018-03-31 06:25 | Outpatient (CLI) | payer MEDICARE, OTHER ==
[2018-03-31 07:02] LABS: HEMATOCRIT 41.7 % (39.0-53.0); HEMOGLOBIN 14.3 g/dL (13.0-17.5); MEAN CORPUSCULAR HEMOGLOBIN 32 pg (25-35); MEAN CORPUSCULAR HGB CONC 34 g/dL (31-37); MEAN CORPUSCULAR VOLUME 92 fL (79-100); PLATELET COUNT 237 x10^3/uL (140-400); RED BLOOD COUNT 4.52 x10^6/uL (4.30-5.70); RED CELL DISTRIBUTION WIDTH 13.8 % (11.5-14.5); WHITE BLOOD COUNT 5.4 x10^3/uL (4.0-11.0)
[2018-03-31] MEDS ORDERED: LIDOCAINE 2% 20 ML VIAL. (07:05)
[2018-03-31] MEDS ORDERED: IODIXANOL 320 MG/ML 100 ML VIAL. (07:05)
[2018-03-31 07:14] LABS: INR 1.8 (0.8-1.1); PARTIAL THROMBOPLASTIN TIME 52 SEC (24-38); PROTHROMBIN TIME PATIENT 19.9 SEC (11.7-14.0)
[2018-03-31 07:18] LABS: ANION GAP 9 (6-14); BLOOD UREA NITROGEN 18 mg/dL (8-26); CALCIUM 8.8 mg/dL (8.5-10.1); CARBON DIOXIDE 26 mmol/L (21-32); CHLORIDE 103 mmol/L (98-107); GLUCOSE 117 mg/dL (70-99); POTASSIUM 4.1 mmol/L (3.5-5.1); SODIUM 138 mmol/L (136-145)
[2018-03-31] MEDS ORDERED: fentaNYL PF VIAL 100 MCG/2 ML VIAL (07:52)
[2018-03-31] MEDS ORDERED: MIDAZOLAM HCL/PF 2 MG/2 ML VIAL. (07:53)
[2018-03-31] MEDS ORDERED: HEPARIN for IV BOLUS 10,000 UNIT/10 ML VIAL. (07:53)
[2018-03-31] MEDS ORDERED: NITROGLYCERIN 200 MCG/2 ML SYRINGE FOR CATH/VASC LAB. (07:53)
[2018-03-31] MEDS ORDERED: VERAPAMIL 5 MG/2 ML VIAL. (07:53)
[2018-03-31] MEDS: LIDOCAINE 2% 20 ML VIAL. IJ (08:52)
[2018-03-31] MEDS: VERAPAMIL 5 MG/2 ML VIAL. IART (08:53)
[2018-03-31] MEDS: NITROGLYCERIN 200 MCG/2 ML SYRINGE FOR CATH/VASC LAB. IART (08:53)
[2018-03-31] MEDS: IODIXANOL 320 MG/ML 100 ML VIAL. IART (08:53)
[2018-03-31] MEDS: HEPARIN for IV BOLUS 10,000 UNIT/10 ML VIAL. IART (08:54)
[2018-03-31] MEDS: MIDAZOLAM HCL/PF 2 MG/2 ML VIAL. IV (08:54)
[2018-03-31] MEDS: fentaNYL PF VIAL 100 MCG/2 ML VIAL IV (08:54)
[2018-03-31] MEDS ORDERED: IV 1/2 NORMAL SALINE 1,000 ML IV (09:14)
[2018-03-31] MEDS ORDERED: NITROGLYCERIN SUBLINGUAL 0.4 MG BOTTLE OF 25. SL (09:15)
== END 2018-03-31 11:30 | disposition home or self-care (01) ==
LOC: CCL 06:25
DX: I20.0 Unstable angina (principal); G62.9 Polyneuropathy, unspecified; E78.00 Pure hypercholesterolemia, unspecified; I10 Essential (primary) hypertension; K21.9 Gastro-esophageal reflux disease without esophagitis; M19.90 Unspecified osteoarthritis, unspecified site; M81.0 Age-related osteoporosis without current pathological fracture; Z96.641 Presence of right artificial hip joint; F43.10 Post-traumatic stress disorder, unspecified; F32.9 Major depressive disorder, single episode, unspecified; F41.9 Anxiety disorder, unspecified; Z82.49 Family history of ischemic heart disease and other diseases of the circulatory system; Z82.5 Family history of asthma and other chronic lower respiratory diseases; Z83.79 Family history of other diseases of the digestive system; Z86.718 Personal history of other venous thrombosis and embolism; Z79.01 Long term (current) use of anticoagulants; Z86.711 Personal history of pulmonary embolism; Z86.010 Personal history of colon polyps; Z72.0 Tobacco use; Z84.89 Family history of other specified conditions; Z98.890 Other specified postprocedural states; Z95.5 Presence of coronary angioplasty implant and graft; Z79.82 Long term (current) use of aspirin; Z79.899 Other long term (current) drug therapy
CPT/HCPCS: 36415; 80048; 85027; 85610; 85730; 93458; 99152; 99153; C1769; C1892; J1644; J2001; J2250; J3010; J3490

== ENCOUNTER 2019-03-05 16:58 | Emergency (ER) | payer MEDICARE, OTHER ==
[~2019-03-05] VITALS: Ht 193 cm; Wt 120.2 kg
[~2019-03-05 16:58] MED LIST changes: +ALBU2.5V8 INH; +BUDE10.2 IH; +CHOL10003 PO; +CRESTOR10 MG PO; +DULO30CA2 PO; -EZET10TA26 PO; +EZET10TA48 PO; -HYDR-2758 PO; +HYDR-2761 PO; +HYDR-2765 PO; +LISI-338 PO; +NITR0.4T22 SL; -REGADENOSON 0.4 MG/5 ML DISP.SYRIN. IV ONE; +WARF7.5T45 PO; -WARF7.5T6 PO
[2019-03-05 18:52] LABS: BASO % 1 % (0-3); EOS # 0.1 x10^3/uL (0.0-0.7); EOS % 2 % (0-3); HEMATOCRIT 37.9 % (39.0-53.0); HEMOGLOBIN 13.1 g/dL (13.0-17.5); LYMPH # 1.6 x10^3/uL (1.0-4.8); LYMPH % 28 % (24-48); MEAN CORPUSCULAR HEMOGLOBIN 32 pg (25-35); MEAN CORPUSCULAR HGB CONC 35 g/dL (31-37); MEAN CORPUSCULAR VOLUME 92 fL (79-100); MONO # 0.5 x10^3/uL (0.0-1.1); MONO % 8 % (0-9); NEUT # 3.6 x10^3uL (1.8-7.7); NEUT % 62 % (31-73); PLATELET COUNT 268 x10^3/uL (140-400); RED BLOOD COUNT 4.14 x10^6/uL (4.30-5.70); RED CELL DISTRIBUTION WIDTH 13.8 % (11.5-14.5); WHITE BLOOD COUNT 5.8 x10^3/uL (4.0-11.0)
[2019-03-05 19:05] LABS: PROTHROMBIN TIME PATIENT 24.4 SEC (11.7-14.0)
--- NOTE | 2019-03-05 19:19 | RAD ---
EXAM: Chest, 2 views. HISTORY: Fall. Chest pain. COMPARISON: 08/08/2014 and 01/25/2017 FINDINGS: 2 views of the chest are obtained. There is mild diffuse increased interstitial opacity. There is no consolidation, pleural effusion or pneumothorax. The heart is normal in size. IMPRESSION: Suspected chronic diffuse increased interstitial opacity. No consolidated infiltrate is seen. Electronically signed by: Taylor Aguilar MD (03/05/2019 7:16 PM) [facility]
[2019-03-05 19:23] LABS: CALCIUM 8.6 mg/dL (8.5-10.1); GFR 76.7; POTASSIUM 3.7 mmol/L (3.5-5.1)
[2019-03-05 19:27] LABS: ALBUMIN/GLOBULIN RATIO 0.9 (1.0-1.7); MAGNESIUM 1.9 mg/dL (1.8-2.4); TOTAL BILIRUBIN 0.3 mg/dL (0.2-1.0); TOTAL PROTEIN 6.4 g/dL (6.4-8.2)
[2019-03-05] MEDS ORDERED: fentaNYL PF VIAL 100 MCG/2 ML VIAL IV ONE (19:30)
--- NOTE | 2019-03-05 20:03 | RAD ---
EXAM: Right lower extremity venous Doppler sonogram. HISTORY: Pain and swelling. TECHNIQUE: Mena scale and color Doppler sonographic evaluation of the right lower extremity veins with spectral waveform analysis was performed. FINDINGS: There is normal color flow, normal compressibility and there are normal spectral waveforms in the common femoral, superficial femoral, popliteal, posterior tibial and greater saphenous veins. IMPRESSION: No Doppler evidence of lower extremity deep venous thrombosis. Electronically signed by: Taylor Aguilar MD (03/05/2019 8:00 PM) [facility]
--- NOTE | 2019-03-05 20:38 | RAD ---
EXAM: Right knee, 3 views; right hip, 3 views; right ankle, 3 views. HISTORY: Trauma. COMPARISON: None. FINDINGS: Right knee: 3 views of the right knee are obtained. There is no fracture, dislocation or subluxation. There is a trace joint effusion. Pelvis and right hip: A frontal view the pelvis and 2 views the right hip are obtained. There is a revision right hip arthroplasty with longstem femoral component. There is no evidence of periprosthetic fracture. Right ankle: 3 views the right ankle are obtained. There is no fracture, dislocation or subluxation. No osteochondral lesion is seen. IMPRESSION: 1. No acute osseous finding. 2. Revision right hip arthroplasty. Electronically signed by: Taylor Aguilar MD (03/05/2019 8:35 PM) [facility]
[2019-03-05 20:39] VITALS: BP 113/72
--- NOTE | 2019-03-05 21:12 | PHYS DOC ---
Past Medical History Past Medical History: CAD, Gallstones Additional Past Medical Histor: HIP REPLACEMENT Past Surgical History: Appendectomy, Cholecystectomy, Hip Replacement Additional Past Surgical Histo: right hip(hardware), cardiac stent lad 01/17/17 Alcohol Use: Rarely Drug Use: None Adult General Chief Complaint Chief Complaint: KNEE INJURY HPI HPI 58-year-old male presents to ER via POV for complaints of right lower extremity pain. Review of Systems Review of Systems Constitutional: Denies fever or chills [] Eyes: Denies change in visual acuity, redness, or eye pain [] HENT: Denies nasal congestion or sore throat [] Respiratory: Denies cough or shortness of breath [] Cardiovascular: No additional information not addressed in HPI [] GI: Denies abdominal pain, nausea, vomiting, bloody stools or diarrhea [] : Denies dysuria or hematuria [] Musculoskeletal: Denies back pain or joint pain [] Integument: Denies rash or skin lesions [] Neurologic: Denies headache, focal weakness or sensory changes [] Endocrine: Denies polyuria or polydipsia [] All other systems were reviewed and found to be within normal limits, except as documented in this note. Current Medications Current Medications Current Medications Medications (Trade) Dose Ordered Sig/Mary Start Time Stop Time Status Last Admin Dose Admin Fentanyl Citrate (Fentanyl 2ml Vial) 50 mcg 1X ONCE 03/05/19 19:30 03/05/19 19:31 DC 03/05/19 19:49 50 MCG Allergies Allergies Allergies Coded Allergies Type Severity Reaction Last Updated Verified citalopram Allergy Intermediate 01/17/17 Yes simvastatin Allergy Intermediate 01/17/17 Yes Physical Exam Physical Exam Constitutional: Well developed, well nourished, no acute distress, non-toxic appearance. [] HENT: Normocephalic, atraumatic, bilateral external ears normal, oropharynx moist, no oral exudates, nose normal. [] Eyes: PERRLA, EOMI, conjunctiva normal, no discharge. [] Neck: Normal range of motion, no tenderness, supple, no stridor. [] Cardiovascular:Heart rate regular rhythm, no murmur [] Lungs & Thorax: Bilateral breath sounds clear to auscultation [] Abdomen: Bowel sounds normal, soft, no tenderness, no masses, no pulsatile masses. [] Skin: Warm, dry, no erythema, no rash. [] Back: No tenderness, no CVA tenderness. [] Extremities: No tenderness, no cyanosis, no clubbing, ROM intact, no edema. [] Neurologic: Alert and oriented X 3, normal motor function, normal sensory function, no focal deficits noted. [] Psychologic: Affect normal, judgement normal, mood normal. [] Current Patient Data Vital Signs Vital Signs Date Time Temp Pulse Resp B/P (MAP) Pulse Ox O2 Delivery O2 Flow Rate FiO2 03/05/19 20:39 74 16 113/72 (86) 94 Room Air 03/05/19 17:12 98.4 98.4 Lab Values Laboratory Tests Test 03/05/19 18:42 White Blood Count 5.8 x10^3/uL (4.0-11.0) Red Blood Count 4.14 x10^6/uL (4.30-5.70) L Hemoglobin 13.1 g/dL (13.0-17.5) Hematocrit 37.9 % (39.0-53.0) L Mean Corpuscular Volume 92 fL (79-100) Mean Corpuscular Hemoglobin 32 pg (25-35) Mean Corpuscular Hemoglobin Concent 35 g/dL (31-37) Red Cell Distribution Width 13.8 % (11.5-14.5) Platelet Count 268 x10^3/uL (140-400) Neutrophils (%) (Auto) 62 % (31-73) Lymphocytes (%) (Auto) 28 % (24-48) Monocytes (%) (Auto) 8 % (0-9) Eosinophils (%) (Auto) 2 % (0-3) Basophils (%) (Auto) 1 % (0-3) Neutrophils # (Auto) 3.6 x10^3uL (1.8-7.7) Lymphocytes # (Auto) 1.6 x10^3/uL (1.0-4.8) Monocytes # (Auto) 0.5 x10^3/uL (0.0-1.1) Eosinophils # (Auto) 0.1 x10^3/uL (0.0-0.7) Basophils # (Auto) 0.0 x10^3/uL (0.0-0.2) Prothrombin Time 24.4 SEC (11.7-14.0) H Prothrombin Time INR 2.2 (0.8-1.1) H PTT 55 SEC (24-38) H Sodium Level 143 mmol/L (136-145) Potassium Level 3.7 mmol/L (3.5-5.1) Chloride Level 106 mmol/L (98-107) Carbon Dioxide Level 26 mmol/L (21-32) Anion Gap 11 (6-14) Blood Urea Nitrogen 17 mg/dL (8-26) Creatinine 1.0 mg/dL (0.7-1.3) Estimated GFR (Cockcroft-Gault) 76.7 BUN/Creatinine Ratio 17 (6-20) Glucose Level 144 mg/dL (70-99) H Calcium Level 8.6 mg/dL (8.5-10.1) Magnesium Level 1.9 mg/dL (1.8-2.4) Total Bilirubin 0.3 mg/dL (0.2-1.0) Aspartate Amino Transferase (AST) 19 U/L (15-37) Alanine Aminotransferase (ALT) 19 U/L (16-63) Alkaline Phosphatase 67 U/L (46-116) Troponin I Quantitative < 0.017 ng/mL (0.000-0.055) Total Protein 6.4 g/dL (6.4-8.2) Albumin 3.0 g/dL (3.4-5.0) L Albumin/Globulin Ratio 0.9 (1.0-1.7) L Laboratory Tests 03/05/19 18:42 Laboratory Tests 03/05/19 18:42 EKG EKG EKG obtained 03/05/19 at [address] Luther Sinus rhythm Rate 76 No STEMI Radiology/Procedures Radiology/Procedures PROCEDURE: HIP RIGHT 2V WITH PELVIS EXAM: Right knee, 3 views; right hip, 3 views; right ankle, 3 views. HISTORY: Trauma. COMPARISON: None. FINDINGS: Right knee: 3 views of the right knee are obtained. There is no fracture, dislocation or subluxation. There is a trace joint effusion. Pelvis and right hip: A frontal view the pelvis and 2 views the right hip are obtained. There is a revision right hip arthroplasty with longstem femoral component. There is no evidence of periprosthetic fracture. Right ankle: 3 views the right ankle are obtained. There is no fracture, dislocation or subluxation. No osteochondral lesion is seen. IMPRESSION: 1. No acute osseous finding. 2. Revision right hip arthroplasty. Electronically signed by: Cr Silverman MD (03/05/2019 8:35 PM) [facility] DICTATED and SIGNED BY: CR SILVERMAN MD DATE: 03/05/192034 Course & Med Decision Making Course & Med Decision Making Pertinent Labs and Imaging studies reviewed. (See chart for details) 2100: Patient was evaluated in the ER for complaints of right lower extremity pain following a fall one week ago. Test results were discussed with patient and his . Patient remains PMS intact in right lower extremity and has had s teady unassisted gait while in the ER. Dragon Disclaimer Dragon Disclaimer This electronic medical record was generated, in whole or in part, using a voice recognition dictation system. Departure Departure Impression: Primary Impression: Fall Additional Impressions: Leg pain, right Traumatic ecchymosis of right lower leg Disposition: HOME, SELF-CARE Condition: STABLE Referrals: UNKNOWN PCP NAME (PCP) QUIQUE HURT MD Patient Instructions: Contusion, Edema, [id number], Fall Prevention and Home Safety, Knee Effusion Additional Instructions: Follow-up with an orthopedic doctor for reevaluation and further care. You can use your crutches to decrease weightbearing on right lower extremity as symptoms are improving. You can use an Todd wrap to your right knee while walking to improve swelling and joint pain avoid applying wrap to tightly. Your INR was 2.2 today on your lab results. Continue home medications as prescribed. Tylenol as needed for pain control as directed on container. Ice and/or heat compress to affected areas every 3-4 hours for 20-30 minutes at a time. Problem Qualifiers NADYA LINDER APRN Mar 05, 2019 21:12
--- NOTE | 2019-03-06 05:58 | EKG ---
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
== END 2019-03-05 21:40 | disposition home or self-care (01) ==
LOC: ER 16:58
DX: S80.11XA Contusion of right lower leg, initial encounter (principal); S79.911A Unspecified injury of right hip, initial encounter; M79.661 Pain in right lower leg; Z96.641 Presence of right artificial hip joint; I25.10 Atherosclerotic heart disease of native coronary artery without angina pectoris; Z90.89 Acquired absence of other organs; Z88.8 Allergy status to other drugs, medicaments and biological substances; W18.39XA Other fall on same level, initial encounter; Y93.89 Activity, other specified; Y92.89 Other specified places as the place of occurrence of the external cause; Y99.8 Other external cause status; Z90.49 Acquired absence of other specified parts of digestive tract
CPT/HCPCS: 36415; 71046; 73502; 73562; 73610; 80053; 83735; 84484; 85025; 85610; 85730; 93005; 93971; 96374; 99285; J3010